=== PATIENT | female | born 1965 | race Caucasian/White ===

== ENCOUNTER → 2018-07-13 07:45 | Outpatient (CLI) | payer OTHER, SELFPAY ==
--- NOTE | 2018-07-13 07:47 | BI_ITS ---
MAMMOGRAPHY - BILATERAL SCREENING 3-D CARYL SYNTHESIS REASON FOR EXAM: Female, 53 years old. Bilateral Screening 3-D tomosynthesis PERTINENT HISTORY: Asymptomatic. Right stereotactic biopsy 2009. Family breast carcinoma, maternal aunt age 58, 2 maternal cousins, age 20 and 30. VAGIFEM CR X 3 YRS TECHNIQUE: 2-D mammograms and 3-D Caryl synthesis of the breast (s) were performed. CAD was performed. COMPARISON: 07/09/2017, 07/08/2016. FINDINGS: The breast composition is composed of scattered fibroglandular density. Scattered benign appearing calcifications are again seen. No dense spiculated dominant masses or suspicious microcalcification cluster are identified. No architectural distortion, asymmetric density, adenopathy, skin thickening or nipple retraction identified. No change left breast central tiny biopsy clip. There has been no significant change since the most recent prior study. BI/SCREENING MAMM (CAD), BILAT IMPRESSION: No mammographic sign of malignancy. Routine yearly mammograms recommended. ASSESSMENT CATEGORY: BIRADS Category 2: Benign. A letter regarding these results will be sent to the patient by the facility within 30 days. FOLLOW UP RECOMMENDATION: Yearly follow up mammogram recommended. (A) Negative mammographic results should not deter biopsy as a palpable lesion if present should be followed on clinical grounds and biopsy performed if clinically persistent for 3 months or increasing size. Approximately 10% of breast cancers are not detected by mammography. A normal mammogram should not delay biopsy of a clinically suspicious abnormality. Dense breast tissue mainstream neoplasm. Electronically Signed: Irwin Rehman, at 13:20 EDT Tel , Service support ,
== END ==
PROVIDERS: Family Provider Nurse Practitioner Adult Health; PCP Nurse Practitioner Adult Health; Referring Provider Nurse Practitioner Women's Health; Visit Provider Nurse Practitioner Women's Health
DX: Z12.31 Encounter for screening mammogram for malignant neoplasm of breast (principal)
CPT/HCPCS: 77063; 77067

== ENCOUNTER → 2019-10-07 08:28 | Outpatient (CLI) | payer OTHER, SELFPAY ==
--- NOTE | 2019-10-07 08:28 | BI_ITS ---
MAMMOGRAPHY - BILATERAL SCREENING 3-D TOMOSYNTHESIS REASON FOR EXAM: Female, 54 years old. BILAT SCREENING - FAM HX OF MAT AUNT @ AGE 58 and amp;amp; 2 MAT COUSINS @ AGE 20''S-30''S - CURR VAG HRT X 4 YRS PERTINENT HISTORY: No significant family history. TECHNIQUE: 2-D mammograms and 3-D Tomosynthesis of the breast (s) were performed. CAD was performed. COMPARISON: July 13, 2018. July 09, 2017. FINDINGS: The breast composition is composed of scattered fibroglandular density. Scattered benign calcifications are seen. No dense spiculated masses or suspicious microcalcifications are identified. No architectural distortion is identified. There is no skin thickening or retraction. There has been no significant change since the prior study. BI/SCREEN MAMM (CAD) W/CARYL BILAT IMPRESSION: No mammographic signs of malignancy. Routine yearly mammograms recommended. ASSESSMENT CATEGORY: BIRADS Category 2: Benign. A letter regarding these results will be sent to the patient by the facility within 30 days. FOLLOW UP RECOMMENDATION: Yearly follow up mammogram recommended. (A) Approximately 10% of breast cancers are not detected by mammography. A normal mammogram should not delay biopsy of a clinically suspicious abnormality. Electronically Signed: Tre Lim MD at 10:01 EST , Service support ,
== END ==
PROVIDERS: Family Provider Nurse Practitioner Adult Health; PCP Nurse Practitioner Adult Health; Referring Provider Nurse Practitioner Women's Health; Visit Provider Nurse Practitioner Women's Health
DX: Z12.31 Encounter for screening mammogram for malignant neoplasm of breast (principal)
CPT/HCPCS: 77063; 77067

== ENCOUNTER → 2020-10-09 07:52 | Outpatient (CLI) | payer OTHER, SELFPAY ==
[2019-10-12 08:06] VITALS: BMI 23.8
--- NOTE | 2020-10-09 07:54 | BI_ITS ---
MAMMOGRAPHY - BILATERAL SCREENING REASON FOR EXAM: Female, 55 years old. Routine annual screening examination. PERTINENT HISTORY: Aunt with breast cancer. Remote right stereotactic breast biopsy. TECHNIQUE: Digital bilateral breast caryl (3D mammographic acquisition) in the CC and MLO projections. 2-D mediolateral oblique (MLO) and craniocaudad (CC) views of both breasts were obtained. CAD: Full Field Digital Mammography with Computer Added Detection was performed. COMPARISON: Comparison is made with prior study dated 10/07/2019 and 07/13/2018. FINDINGS: Breast Composition: There are scattered areas of fibroglandular density. There are no dominant masses or suspicious calcifications. A tissue clip marker is once again seen in the upper central portion of the right breast. Stable calcified right retroareolar nodule. No other significant abnormalities are identified. There has been no significant change since the prior study. BI/SCREEN MAMM (CAD) W/CARYL BILAT IMPRESSION: Stable bilateral screening mammogram. Yearly follow-up mammogram recommended. (A) ASSESSMENT CATEGORY: BIRADS Category 2: Benign. A letter regarding these results will be sent to the patient by the facility within 30 days. Approximately 10% of breast cancers are not detected by mammography. A normal mammogram should not delay biopsy of a clinically suspicious abnormality. [id number] Electronically Signed: Sheldon Stapleton, at 12:42 EST , Service support ,
== END ==
PROVIDERS: PCP Nurse Practitioner Adult Health; Referring Provider Nurse Practitioner Women's Health; Visit Provider Nurse Practitioner Women's Health
DX: Z12.31 Encounter for screening mammogram for malignant neoplasm of breast (principal); Z80.3 Family history of malignant neoplasm of breast
CPT/HCPCS: 77063; 77067

== ENCOUNTER → 2020-10-23 13:18 | Outpatient (CLI) | payer OTHER, SELFPAY ==
[2019-10-12 08:06] VITALS: BMI 23.8
[2020-10-27 20:11] LABS: HPV APTIMA, High Risk Negative (Negative)
== END ==
PROVIDERS: PCP Nurse Practitioner Adult Health; Visit Provider Nurse Practitioner Women's Health
DX: Z12.4 Encounter for screening for malignant neoplasm of cervix (principal)
CPT/HCPCS: 87624; 88175; G0145

== ENCOUNTER 2021-12-18 08:15 | Outpatient (CLI) | payer OTHER, SELFPAY ==
--- NOTE | 2021-12-18 08:26 | BD_ITS ---
STUDY: DUAL ENERGY X-RAY ABSORPTIOMETRY / DXA REASON FOR EXAM: Female, 56 years old. Post menopausal TECHNIQUE: Bone Mineral Density (BMD) measurements of lumbar spine and bilateral hips were obtained. COMPARISON: None. FINDINGS: Lumbar Spine (L1-L4): g/cm2 (0.923) / T-score (-1.1) / Z-score (0.2) Findings are suggestive of osteopenia with a low fracture risk. Left Femur Total: g/cm2 (0.840) / T-score (-0.8) / Z-score (0.0) Left Femoral Neck: g/cm2 (0.744) / T-score (-0.9) / Z-score (0.3) Right Femur Total: g/cm2 (0.871) / T-score (-0.6) / Z-score (0.3) Right Femoral Neck: g/cm2 (0.710) / T-score (-1.3) / Z-score (0.0) BD/Dexa Bone Density Study IMPRESSION: The patient is considered osteopenic as outlined below according to World [employer] Organization (WHO) criteria with a low fracture risk. Reference Information: The T-score is the number of standard deviations above or below the standard which is normal for young adults at their peak bone mineral density. The World Health Organization (WHO) interprets the T-scores as follows: Above -1 Normal bone density Between -1 and -2.5 Osteopenia Equal to / or below -2.5 Osteoporosis As a practical clinical guideline, osteopenia may be graded as follows: Mild -1 through -1.5 Moderate -1.6 through -2.0 Severe -2.1 through -2.4 The Z-score is the number of standard deviations above or below age-matched controls. A Z-score of less than -1.5 would be considered abnormal. References: 1. NIH Osteoporosis and Related Bone Diseases www osteo.org 2. International Society for Clinical Densitometry www iscd.org 3. National Osteoporosis Foundation www nof.org Electronically Signed: Shelodn Stapleton MD at 8:46 EDT ,
== END 2021-12-18 23:59 | disposition home or self-care (01) ==
LOC: OPBD 08:16
PROVIDERS: PCP Internal Medicine; Referring Provider Nurse Practitioner Women's Health; Visit Provider Nurse Practitioner Women's Health
DX: Z78.0 Asymptomatic menopausal state (principal)
CPT/HCPCS: 77080

== ENCOUNTER → 2022-10-14 | Outpatient (CLI) | payer MEDICARE, SELFPAY ==
--- NOTE | 2022-10-14 07:13 | BI_ITS ---
MAMMOGRAPHY - BILATERAL SCREENING REASON FOR EXAM: Female, 57 years old. Routine annual screening examination. PERTINENT HISTORY: Aunt with breast cancer. Prior right breast biopsy. TECHNIQUE: Digital bilateral breast caryl (3D mammographic acquisition) in the CC and MLO projections. 2-D mediolateral oblique (MLO) and craniocaudad (CC) views of both breasts were obtained. CAD: Full Field Digital Mammography with Computer Added Detection was performed. COMPARISON: Comparison is made with prior study dated 10/10/2021 and 10/09/2020. FINDINGS: Breast Composition: There are scattered areas of fibroglandular density. There are no dominant masses or suspicious calcifications. A tissue clip marker is seen in the central depth of the right breast. This is unchanged. No other significant abnormalities are identified. There has been no significant change since the prior study. BI/SCRN MAMM (CAD)W/CARYL BILAT IMPRESSION: Stable bilateral screening mammogram. Yearly follow-up mammogram recommended. (A) ASSESSMENT CATEGORY: BIRADS Category 2: Benign. A letter regarding these results will be sent to the patient by the facility within 30 days. Approximately 10% of breast cancers are not detected by mammography. A normal mammogram should not delay biopsy of a clinically suspicious abnormality. [id number] Electronically Signed: Sheldon Stapleton MD at 8:54 EST ,
== END | disposition home or self-care (01) ==
PROVIDERS: PCP Internal Medicine; Visit Provider Nurse Practitioner Women's Health
DX: Z12.31 Encounter for screening mammogram for malignant neoplasm of breast (principal)
CPT/HCPCS: 77063; 77067

== ENCOUNTER → 2023-10-16 | Outpatient (CLI) | payer MEDICARE, SELFPAY ==
--- NOTE | 2023-10-16 07:02 | BI_ITS ---
MAMMOGRAPHY - BILATERAL SCREENING REASON FOR EXAM: Female, 58 years old. Routine annual screening examination. PERTINENT HISTORY: Aunt with breast cancer. History of prior right stereotactic breast biopsy. TECHNIQUE: Digital bilateral breast caryl (3D mammographic acquisition) in the CC and MLO projections. 2-D mediolateral oblique (MLO) and craniocaudad (CC) views of both breasts were obtained. CAD: Full Field Digital Mammography with Computer Added Detection was performed. COMPARISON: Comparison is made with prior study of October 14, 2022 and October 10, 2021. FINDINGS: Breast Composition: There are scattered areas of fibroglandular density. There are no dominant masses or suspicious calcifications. A tissue clip marker is again seen in the central depth of the right breast. No other significant abnormalities are identified. There has been no significant change since the prior study. BI/SCRN MAMM (CAD)W/CARYL BILAT IMPRESSION: Stable bilateral screening mammogram. Yearly follow-up mammogram recommended. (A) ASSESSMENT CATEGORY: BIRADS Category 2: Benign. A letter regarding these results will be sent to the patient by the facility within 30 days. Approximately 10% of breast cancers are not detected by mammography. A normal mammogram should not delay biopsy of a clinically suspicious abnormality. [id number] Electronically Signed: Sheldon Stapleton MD at 8:21 EST ,
--- OUTSIDE RECORDS SUMMARY | 2023-10-16 07:05 | XMS RPT_ITS | CCD ---
Author Name Unknown Address [address] [place] [address] Organization [facility] Care Team Providers Care Tile Inspector Name Role Phone Margy DENTAL DETAIL REPRESENTATIVE, Erica Lawson Unavailable Aleksandr LONGORIA, Mariam Primary Care Provider Mariam Brandon MD Primary Care Provider [phone] KYLE SÁNCHEZ Attending Unavailable ALEKSANDR, MARIAM Primary Care Unavailable KYLE SÁNCHEZ Admitting Unavailable KYLE SÁNCHEZ Attending Unavailable ALEKSANDR, MARIAM Primary Care Unavailable KYLE SÁNCHEZ Admitting Unavailable Mariam Brandon MD Primary Care Provider Mariam Brandon MD Primary Care Provider [phone] OLDER, KELSEY Referring Unavailable GANTA, MARIAM Primary Care Unavailable BRIGITTE ABDI Attending Unavailable JOSE MANUEL WATERS Referring Unavailable GANTA, MARIAM Primary Care Unavailable JOSE MANUEL WATERS Attending Unavailable GANTA, MARIAM Primary Care Unavailable GANTA MARIAM Referring Unavailable GANTA, MARIAM Primary Care Unavailable AZAR SYED Attending Unavailable GANTA, MARIAM Primary Care Unavailable Medications Current Medications Medication Drug Class(es) Dates Sig (Normalized) Sig (Original) polyethylene glycol 3350 883117 mg / potassium chloride 2980 mg / sodium bicarbonate 6720 mg / sodium chloride 5840 mg / sodium sulfate 39802 mg powder for oral solution (1 source) Osmotic Laxative Start: 05-26-2023 End: 05-26-2023 peg 3350-electrolytes (COLYTE) 240-22.72-6.72 -5.84 gram solution Indications: Special screening for malignant neoplasms, colon Take 4,000 mL by mouth one time only for 1 dose. 4000 mL 0 05/26/2023 05/26/2023 Active Completed/Discontinued Medications Medication Drug Class(es) Dates Sig (Normalized) Sig (Original) biotin 5 mg oral tablet (20 sources) take 1 tablet by tammi th once daily biotin 5 mg tab Take 5 mg by mouth once daily. 0 Active Problems Active Problems Problem Classification Problem Date Documented Date Episodic/Chronic Anxiety disorders (20 sources) Anxiety; Translations: [Anxiety disorder, unspecified] Onset: 01-14-2014 01-14-2014 Chronic Diabetes mellitus without complication (2 sources) Hyperglycemia; Translations: [Hyperglycemia, unspecified] Episodic Disorders of lipid metabolism (2 sources) Mixed hyperlipidemia; Translations: [Mixed hyperlipidemia] Chronic Nutritional deficiencies (1 source) Vitamin D deficiency; Translations: [Vitamin D deficiency, unspecified] Chronic Other acquired deformities (20 sources) Acquired kyphosis; Translations: [Kyphosis (acquired)] Onset: 03-28-2004 03-28-2004 Chronic Other circulatory disease (1 source) Labile hypertension due to being in a clinical environment; Translations: [Elevated blood-pressure reading, without diagnosis of hypertension] 05-26-2023 Episodic Other screening for suspected conditions (not mental disorders or infectious disease) (10 sources) Patient encounter status; Translations: [Encounter for screening for diabetes mellitus] Onset: 07-23-2023 Episodic Spondylosis; intervertebral disc disorders; other back problems (20 sources) Cervical spondylosis; Translations: [Spondylosis without myelopathy or radiculopathy, cervical region] Onset: 12-20-2011 12-20-2011 Chronic Thyroid disorders (20 sources) Acquired hypothyroidism; Translations: [Hypothyroidism, unspecified] Onset: 01-27-2012 Chronic Unclassified (1 source) Gynecologic examination ; Translations: [Encounter for gynecological examination (general) (routine) without abnormal findings] Onset: 07-10-2017 07-10-2017 Unclassified (1 source) Screening mammography ; Translations: [Encounter for screening mammogram for malignant neoplasm of breast] Onset: 05-05-2017 05-05-2017 Past or Other Problems Problem Classification Problem Date Documented Da te Episodic/Chronic Other aftercare (1 source) 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; Translations: [Medication management] Onset: 09-04-2022 Episodic Other connective tissue disease (20 sources) Impingement syndrome of shoulder region; Translations: [Impingement syndrome of unspecified shoulder] Onset: 09-14-2015 09-14-2015 Episodic Other female genital disorders (20 sources) Stenosis of cervix; Translations: [Stricture and stenosis of cervix uteri] Onset: 12-20-2011 12-20-2011 Episodic Other fractures (20 sources) Compression fracture of thoracic spine; Translations: [Wedge compression fracture of unspecified thoracic vertebra, initial encounter for closed fracture] Onset: 04-11-2014 09-14-2015 Episodic Other non-traumatic joint disorders (20 sources) Pain in lower limb; Translations: [Pain in unspecified knee] Onset: 02-14-2009 09-28-2015 Episodic Other non-traumatic joint disorders (20 sources) Swelling of knee joint; Translations: [Effusion, right knee] Onset: 04-19-2014 09-28-2015 Episodic Other non-traumatic joint disorders (20 sources) Pain in right knee; Translations: [Pain in joint, lower leg] Onset: 04-19-2014 04-19-2014 Episodic Spondylosis; intervertebral disc disorders; other back problems (20 sources) Pain in thoracic spine; Translations: [Pain in thoracic spine] Onset: 03-28-2004 09-01-2018 Episodic Results Test Name Value Interpretation Reference Range Facil ity Vital Signs Date Time Vital Sign Value Performing Clinician Facility 07-23-2023 10:57-0400 Heart rate 53 /min Brigitte Abdi MD Work Phone: [facility] 07-23-2023 10:57-0400 Respiratory rate 16 /min Brigitte Abdi MD Work Phone: [facility] 07-23-2023 10:57-0400 SaO2% (BldA) [Mass fraction] 100 % Brigitte Abdi MD Work Phone: [facility] 07-23-2023 10:47-0400 Diastolic blood pressure 81 mm[Hg] Brigitte Abdi MD Work Phone: [facility] 07-23-2023 10:47-0400 Systolic blood pressure 153 mm[Hg] Brigitte Abdi MD Work Phone: [facility] 07-23-2023 09:19-0400 Body temperature 97.2 [degF] Brigitte Abdi MD Work Phone: [facility] 05-26-2023 07:46-0400 Body height 152.4 cm Jose Manuel Denbow PA-C Work Phone: [facility] 05-26-2023 07:46-0400 Body temperature 98.29 [degF] Jose Manuel Denbow PA-C Work Phone: [facility] 05-26-2023 07:46-0400 Body weight 52.62 kg Jose Manuel Denbow PA-C Work Phone: [facility] 05-26-2023 07:46-0400 Diastolic blood pressure 70 mm[Hg] Jose Manuel Denbow PA-C Work Phone: [facility] 05-26-2023 07:46-0400 Heart rate 82 /min Jose Manuel Denbow PA-C Work Phone: [facility] 05-26-2023 07:46-0400 Respiratory rate 12 /min Jose Manuel Denbow PA-C Work Phone: [facility] 05-26-2023 07:46-0400 SaO2% (BldA) [Mass fraction] 100 % Jose Manuel Denbow PA-C Work Phone: [facility] 05-26-2023 07:46-0400 Systolic blood pressure 138 mm[Hg] Jose Manuel Denbow PA-C Work Phone: [facility] 01-07-2023 07:44-0400 Body height 152.4 cm Azar Quiñonezle DIRECTOR CORPORATE SECURITY.LANDSCAPE ARCHITECT Work Phone: [facility] 01-07-2023 07:44-0400 Body weight 56.06 kg Azar Syed DIRECTOR CORPORATE SECURITY.LANDSCAPE ARCHITECT Work Phone: [facility] 01-07-2023 07:44-0400 Heart rate 69 /min Azar Quiñonezle DIRECTOR CORPORATE SECURITY.LANDSCAPE ARCHITECT Work Phone: [facility] 01-07-2023 07:44-0400 SaO2% (BldA) [Mass fraction] 100 % Azar Syed DIRECTOR CORPORATE SECURITY.LANDSCAPE ARCHITECT Work Phone: [facility] 05-24-2022 07:58-0400 Body height 152.4 cm Mariam Brandon MD Work Phone: [facility] 05-24-2022 07:58-0400 Body temperature 99.39 [degF] Mariam Brandon MD Work Phone: [facility] 05-24-2022 07:58-0400 Body weight 52.62 kg Mariam Brandon MD Work Phone: [facility] 05-24-2022 07:58-0400 Diastolic blood pressure 62 mm[Hg] Mariam Brandon MD Work Phone: [facility] 05-24-2022 07:58-0400 Heart rate 82 /min Mariam Brandon MD Work Phone: [facility] 05-24-2022 07:58-0400 Respiratory rate 12 /min Mariam Brandon MD Work Phone: [facility] 05-24-2022 07:58-0400 SaO2% (BldA) [Mass fraction] 99 % Mariam Brandon MD Work Phone: [facility] 05-24-2022 07:58-0400 Systolic blood pressure 120 mm[Hg] Mariam Brandon MD Work Phone: [facility] 04-29-2022 07:50-0400 Body height 152.4 cm Azar Syed DIRECTOR CORPORATE SECURITY.LANDSCAPE ARCHITECT Work Phone: [facility] 04-29-2022 07:50-0400 Body weight 56.11 kg Azar Syed DIRECTOR CORPORATE SECURITY.LANDSCAPE ARCHITECT Work Phone: [facility] 04-29-2022 07:50-0400 Heart rate 79 /min Azar Syed DIRECTOR CORPORATE SECURITY.LANDSCAPE ARCHITECT Work Phone: [facility] 04-29-2022 07:50-0400 SaO2% (BldA) [Mass fraction] 100 % Azar Syed DIRECTOR CORPORATE SECURITY.LANDSCAPE ARCHITECT Work Phone: [facility] 02-04-2022 08:48-0400 Body weight 57.52 kg Azar Syed DIRECTOR CORPORATE SECURITY.LANDSCAPE ARCHITECT Work Phone: [facility] 02-04-2022 08:48-0400 Diastolic blood pressure 82 mm[Hg] Azar Syed APRN.LANDSCAPE ARCHITECT Work Phone: [facility] 02-04-2022 08:48-0400 Heart rate 91 /min Azar Syed APRN.LANDSCAPE ARCHITECT Work Phone: [facility] 02-04-2022 08:48-0400 SaO2% (BldA) [Mass fraction] 100 % Azar Syed DIRECTOR CORPORATE SECURITY.LANDSCAPE ARCHITECT Work Phone: [facility] 02-04-2022 08:48-0400 Systolic blood pressure 164 mm[Hg] Azar Syed DIRECTOR CORPORATE SECURITY.LANDSCAPE ARCHITECT Work Phone: [facility] 07-10-2017 08:01-0400 BMI (Body Mass Index) 23.36 kg/m2 Erica Ji NP [facility] 07-10-2017 08:01-0400 Body Temperature 98.2 [degF] Erica Ji NP [facility] 07-10-2017 08:01-0400 BP Diastolic 85 mm[Hg] Erica Ji NP [facility] 07-10-2017 08:01-0400 BP Systolic 130 mm[Hg] Erica Ji NP [facility] 07-10-2017 08:01-0400 Height 152.4 cm Erica Ji NP [facility] 07-10-2017 08:01-0400 Pulse (Heart Rate) 90 /min Erica Ji NP [facility] 07-10-2017 08:01-0400 Respiratory Rate 16 /min Erica Ji NP [facility] 07-10-2017 08:01-0400 Weight 54.25 kg Erica Ji NP [facility] Encounters Encounter Date Encounter Type Care Provider Facility Start: 07-23-2023 End: 07-23-2023 ambulatory BRIGITTE ABDI Facility:[facility] Start: 07-23-2023 End: 07-23-2023 Subsequent hospital visit by physician Brigitte Abdi MD Work Phone: Ambulatory Surgery Procedures Date Procedure Procedure Detail Performing Clinician Start: 07-23-2023 Colonoscopy flx dx w /collj spec when pfrmd Jose Manuel Waters PA-C Work Phone: Start: 07-23-2023 Colonoscopy Brigitte Abdi MD Work Phone: Start: 05-20-2023 Lipid 1996 panel - S efra or Plasma Brigitte Abdi MD Work Phone: Start: 10-14-2022 Mammography Mariam baca MD Work Phone: Start: 05-24-2022 Adult depression scr eening assessment Mariam Brandon MD Work Phone: Start: 10-10-2021 Mammography Mariam baca MD Work Phone: Start: 05-24-2019 Adult depression scr eening assessment Mariam Brandon MD Work Phone: Start: 05-05-2017 End: 07-16-2017 Mammogram, screening Erica Ji NP Work Phone: Start: 07-09-2013 Colonoscopy Mariam baca MD Work Phone: Plan of Treatment Date Care Activity Detail Author Start: 07-23-2033 Colonoscopy Colonoscopy [facility] Start: 07-23-2033 Colorectal Cancer Screening Colorectal Cancer Screening [facility] Start: 05-20-2028 Lipid 1996 panel - S efra or Plasma Lipid Screening [facility] Start: 05-20-2028 LIPID SCREEN LIPID SCREEN [facility] Start: 05-22-2027 PAP TESTING PAP TESTING [facility] Start: 05-21-2027 Urine microalbumin profile [facility] Start: 05-16-2027 LIPID SCREEN LIPID SCREEN [facility] Start: 12-19-2026 HPV TESTING HPV TESTING [facility] Start: 05-20-2026 DIABETES SCREEN DIABETES SCREEN [facility] Start: 05-20-2026 Diabetes Screening Diabetes Screenin g [facility] Start: 05-14-2026 LIPID SCREEN LIPID SCREEN [facility] Start: 05-16-2025 DIABETES SCREEN DIABETES SCREEN [facility] Start: 05-26-2024 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 ANNUAL PCP TEAM CHRONIC DISEASE VISIT [facility] Start: 05-26-2024 COVID-19 VACCINE (3 - Pfizer series) COVID-19 VACCINE (3 - Pfizer series) [facility] Immunizations Immunization Date Immunization Notes Care Provider Deric larkin 07-26-2022 influenza, seasonal, injectable Azar Syed SINDHU Work Phone: [facility] 07-26-2022 influenza virus vaccine, unspecified formulation Brigitte Abdi MD Work Phone: [facility] 01-22-2021 COVID-19 vaccine, ag e 12+ yr (PFIZER-BIONTECH - PURPLE TOP) Mariam Brandon MD Work Phone: [facility] Work Phone: 01-01-2021 COVID-19 vaccine, ag e 12+ yr (PFIZER-BIONTECH - PURPLE TOP) Mariam Brandon MD Work Phone: [facility] 05-21-2017 tetanus toxoid, redu karime diphtheria toxoid, and acellular pertussis vaccine, adsorbed Mariam Brandon MD Work Phone: [facility] 08-09-2016 influenza, injectabl e, quadrivalent, contains preservative Mariam Brandon MD Work Phone: [facility] Work Phone: 07-24-2006 tetanus and diphther ia toxoids, adsorbed, preservative free, for adult use (2 Lf of tetanus toxoid and 2 Lf of diphtheria toxoid) Mariam Brandon MD Work Phone: [facility] Payers Date Payer Category Payer Unknown [id number] 2007 Private Health Insurance [facility] CHOICE PLUS [id number] 2007-Present [phone] [address] [place] [address] [place] [address] [id number] 2007 Private Health Insurance [facility] CHOICE PLUS [id number] 2007-Present [phone] [address] [place] [id number] [facility] [id number] 2007 Unknown [id number] 1986 Unknown [id number] Social History Date Type Detail Facility Start: 06-24-2011 Tobacco smoking stat [facility] Never smoked tobacco [facility] Start: 11-29-2021 End: 07-23-2023 Alcohol intake Current drinker of alcohol (finding) [facility] Start: 1965 Sex Assigned At Not on file [facility] Start: 01-04-2022 End: 06-27-2022 Exposure to SARS-CoV-2 (event) Not sure [facility] Start: 06-24-2011 Tobacco use and exposure Smokeless tobacco non-user [facility] Start: 10-21-2022 End: 01-07-2023 History of Social function [facility] Work Phone: Start: 10-21-2022 End: 01-07-2023 Tobacco use panel [facility] Work Phone: National Score (1-100), lower number is lower risk 51 [facility] Work Phone: Medical Equipment Procedure Code Equipment Code Equipment Origin al Text Equipment Identifier Dates Nau-Xl-[id number]-Kind Implant - [id number] Start: 10-09-2011 Clinical Notes 01-30-2016 to 07-23-2023 Odilia Reynolds RN - 07/23/2023 10:27 AM Brigitte Leon MD - 07/23/2023 10:00 AM Brigitte Leon MD - 07/23/2023 10:00 AM EDTPatient Instructions Note Date & Type Note Facility 07-23-2023 Nurse Note Arrived in phase II via cart. Left lateral position. Sedated, but responds to verbal stimuli. Color normal; skin warm and dry. Respirations wnl and unlabored. Abdomen soft and with + bowel sounds in quads X 4. Patient resting comfortably. Odilia Austin RN documented in this encounter [facility] 07-23-2023 History and physical note UPDATED PROCEDURAL SEDATION HISTORY AND PHYSICAL EXAMINATION SERVICE DATE: 07/23/2023 SERVICE TIME: 9:14 PHYSICAL EXAM MUST BE COMPLETED ON ADMISSION PROCEDURE: colonoscopy, possible biopsies Procedure Indications: screening for colon cancer The History and Physical (completed in the past 30 days) has been reviewed and the patient has been examined. The contents accurately reflect the patient's condition with the following additions or revisions since the H&P was completed. ASA Class: ASA Class:: Patient with mild systemic disease Examination indicates no changes. AIRWAY: Airway Visualization of Uvula: Yes Mouth opening greater than 2 fingerbreadths: Yes Neck Full Range of Motion: Yes LUNGS: Lungs clear to auscultation CARDIAC: Regular rhythm,Regular rate Provisional Diagnosis/Treatment Plan: colonoscopy, possible biopsies SEDATION GOAL: Moderate This H&P can be found in the Electronic Medical Record . SIGNATURE: Brigitte Abdi MD PATIENT NAME: Katherine Flores DATE: July 23, 2023 TIME: 9:19 AM Source Note - Brigitte Abdi MD - 07/23/2023 10:00 AM EDT HISTORY AND PHYSICAL Katherine Flores 1965 REFERRING PHYSICIAN: Jose Manuel Waters PA-C CHIEF COMPLAINT: No chief complaint on file. HPI: The patient is a 58 year old female presents for screening for colon cancer via colonoscopy The patient denies blood in stools, denies abdominal pain, and denies changes in bowel habits. The patient notes no colon cancer in immediate family. The patient has had previous colonoscopy in 2012 PAST MEDICAL HISTORY Diagnosis Date Abnormal mammogram, unspecified 06/21/2009 Biceps tendinitis on right 01/30/2016 Cervical stenosis of spine Chronic right shoulder pain 01/30/2016 Encounter for insertion or removal of intrauterine contraceptive device 07/15/2008 Mirena Fibrocystic disease of breast 01/15/2010 Hypothyroid 08/2009 Osteoarthritis knees- follows with Ortho Other acquired deformity of toe 08/20/2010 PCB (post coital bleeding) PMH - PAST MEDICAL HISTORY OF broken back PMH - PAST MEDICAL HISTORY OF bartholin cyst PAST SURGICAL HISTORY Procedure Laterality Date BX BREAST PERC VACUUM/ROTN 06/23/09 right CHOLECYSTECTOMY COLONOSCOPY FLX DX W/COLLJ SPEC WHEN PFRMD 07/09/2013 Colonoscopy DILATION & CURETTAGE DX&/THER NONOBSTETRIC 2016 Dilation & curettage HYSTEROSCOPY 2016 for removal of cervical/uterine polyp. 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 Except take 2 tablets on Friday latanoprost (XALATAN) 0.005 % ophthalmic solution 1 Drop daily at bedtime. cholecalciferol (VITAMIN D3) 1,000 unit tab tablet Take 1,000 Units by mouth once daily. cyclobenzaprine (FLEXERIL) 10 mg tablet Take 1 tablet by mouth three times daily as needed for muscle spasm. clonazePAM (KLONOPIN) 0.5 mg tablet Take 1 tablet by mouth once daily as needed for anxiety for up to 30 days. traMADol (ULTRAM) 50 mg tablet Take 1 tablet by mouth every 6 hours as needed for pain. conjugated estrogens (PREMARIN) vaginal cream Use a pea sized amount to the vaginal area 3 times a week biotin 5 mg tab Take 5 mg by mouth once daily. No current facility-administered medications for this encounter. ALLERGIES: No Known Allergies PERSONAL HISTORY: Social History Tobacco Use Smoking status: Never Smokeless tobacco: Never Substance Use Topics Alcohol use: Yes Comment: very rare Drug use: No FAMILY HISTORY Problem Relation Age of Onset Diabetes Mother Hypertension Mother Lipids Mother other (parkinsons) Mother Prostate Cancer Father Diabetes Father prediabetic Hypertension Father Kidney Disease Father FSGS COPD Father other (PAD) Father Diabetes Paternal Grandmother Breast Cancer Other maternal cousin Diabetes Brother Hypertension Brother other (kidney disease) Brother kidney and pancreas transplant 04/12 REVIEW OF SYSTEMS: Denies fevers Denies chest pain Denies shortness of breath Physical examination: Vital signs in chart, reviewed and noted by me General - WD/WN in no apparent distress, alert and oriented Head - Normocephalic. EOM intact with sclera clear. Mouth with mucus membranes moist. Neck - supple with no jugular venous distention noted. Trachea is midline. Lungs - clear to auscultation. Normal breath sounds. No rales/rhonchi/wheezing noted. Heart - normal heart sounds. No rubs/clicks/murmurs noted. Regular rate. Abdomen - soft and benign. Extremities - no pitting edema noted. Skin - Normal skin integrity. Neurological - non focal Psych - calm and appropriate Impression: screening for colon cancer Discussion/Plan/Recommendations: I have discussed the above with the patient. I have offered colonoscopy, possible biopsies I have explained the procedure to the patient. I have counseled the patient as to the risks of the procedure, including but not limited to: infection, bleeding, injury to any intrabdominal organs such as liver/spleen, perforation of the GI tract, inability to complete the procedure, complications of anesthesia, etc. - the patient understands. The patient wishes to proceed. I have answered all questions to the patient s satisfaction and the patient has no further questions. . Brigitte Abdi MD HISTORY AND PHYSICAL Katherine Flores 1965 REFERRING PHYSICIAN: Jose Manuel Waters PA-C CHIEF COMPLAINT: No chief complaint on file. HPI: The patient is a 58 year old female presents for screening for colon cancer via colonoscopy The patient denies blood in stools, denies abdominal pain, and denies changes in bowel habits. The patient notes no colon cancer in immediate family. The patient has had previous colonoscopy in 2012 PAST MEDICAL HISTORY Diagnosis Date Abnormal mammogram, unspecified 06/21/2009 Biceps tendinitis on right 01/30/2016 Cervical stenosis of spine Chronic right shoulder pain 01/30/2016 Encounter for insertion or removal of intrauterine contraceptive device 07/15/2008 Mirena Fibrocystic disease of breast 01/15/2010 Hypothyroid 08/2009 Osteoarthritis knees- follows with Ortho Other acquired deformity of toe 08/20/2010 PCB (post coital bleeding) PMH - PAST MEDICAL HISTORY OF broken back PMH - PAST MEDICAL HISTORY OF bartholin cyst PAST SURGICAL HISTORY Procedure Laterality Date BX BREAST PERC VACUUM/ROTN 06/23/09 right CHOLECYSTECTOMY COLONOSCOPY FLX DX W/COLLJ SPEC WHEN PFRMD 07/09/2013 Colonoscopy DILATION & CURETTAGE DX&/THER NONOBSTETRIC 2016 Dilation & curettage HYSTEROSCOPY 2016 for removal of cervical/uterine polyp. 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 Except take 2 tablets on Friday latanoprost (XALATAN) 0.005 % ophthalmic solution 1 Drop daily at bedtime. cholecalciferol (VITAMIN D3) 1,000 unit tab tablet Take 1,000 Units by mouth once daily. cyclobenzaprine (FLEXERIL) 10 mg tablet Take 1 tablet by mouth three times daily as needed for muscle spasm. clonazePAM (KLONOPIN) 0.5 mg tablet Take 1 tablet by mouth once daily as needed for anxiety for up to 30 days. traMADol (ULTRAM) 50 mg tablet Take 1 tablet by mouth every 6 hours as needed for pain. conjugated estrogens (PREMARIN) vaginal cream Use a pea sized amount to the vaginal area 3 times a week biotin 5 mg tab Take 5 mg by mouth once daily. No current facility-administered medications for this encounter. ALLERGIES: No Known Allergies PERSONAL HISTORY: Social History Tobacco Use Smoking status: Never Smokeless tobacco: Never Substance Use Topics Alcohol use: Yes Comment: very rare Drug use: No FAMILY HISTORY Problem Relation Age of Onset Diabetes Mother Hypertension Mother Lipids Mother other (parkinsons) Mother Prostate Cancer Father Diabetes Father prediabetic Hypertension Father Kidney Disease Father FSGS COPD Father other (PAD) Father Diabetes Paternal Grandmother Breast Cancer Other maternal cousin Diabetes Brother Hypertension Brother other (kidney disease) Brother kidney and pancreas transplant 04/12 REVIEW OF SYSTEMS: Denies fevers Denies chest pain Denies shortness of breath Physical examination: Vital signs in chart, reviewed and noted by me General - WD/WN in no apparent distress, alert and oriented Head - Normocephalic. EOM intact with sclera clear. Mouth with mucus membranes moist. Neck - supple with no jugular venous distention noted. Trachea is midline. Lungs - clear to auscultation. Normal breath sounds. No rales/rhonchi/wheezing noted. Heart - normal heart sounds. No rubs/clicks/murmurs noted. Regular rate. Abdomen - soft and benign. Extremities - no pitting edema noted. Skin - Normal skin integrity. Neurological - non focal Psych - calm and appropriate Impression: screening for colon cancer Discussion/Plan/Recommendations: I have discussed the above with the patient. I have offered colonoscopy, possible biopsies I have explained the procedure to the patient. I have counseled the patient as to the risks of the procedure, including but not limited to: infection, bleeding, injury to any intrabdominal organs such as liver/spleen, perforation of the GI tract, inability to complete the procedure, complications of anesthesia, etc. - the patient understands. The patient wishes to proceed. I have answered all questions to the patient s satisfaction and the patient has no further questions. . Brigitte Abdi MD documented in this encounter [facility] 05-26-2023 Note HNO ID: [id number] Author: Jose Manuel Waters PA-C Service: ? Author Type: Physician Nailing Machine Operator Type: Progress Notes Filed: 05/26/2023 8:50 AM Note Text: CC: Patient presents with: Physical: physical no forms HPI Katherine Flores is a 58 year old female who presents today for annual physical exam. Exercise: Walking is my only exercise because of my back, usually walks daily when weather allows Diet: Eats healthy for the most part- doing well getting in veggies an Caffeine: 3 cans of diet coke/day - her alternative to coffee. 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 She is doing well on her current dose of Synthroid. Had it changed a year ago, and symptoms have improved (was c/o thinning hair, excessive fatigue) Denies fatigue, cold intolerance, constipation, swelling in feet, weight gain, and hair loss. TSH Date Value 05/20/2023 2.300 mIU/L 09/04/2022 3.760 mIU/L 05/14/2021 4.790 uU/mL 05/11/2020 3.150 uU/mL Hx of chronic pain in neck and back, x 2 surgeries and multiple injections-- currently receives them in lumbar and cervical, last received in 02/[address] Magallon for CTS, OA of knees Eczema: Sees Nighat Dumont PA-C, sees 3 times/year Glaucoma: Sees Dr. Márquez at [facility] Has well women's exam through Erica Ji CNP-- last saw in 12/26, last pap was in 12/25 The 10-year ASCVD risk score (Sommer BALDWIN, et al., 2019) is: 3% Values used to calculate the score: Age: 58 years Sex: Female Is Non- : No Diabetic: No Tobacco smoker: No Systolic Blood Pressure: 138 mmHg Is BP treated: No HDL Cholesterol: 72 mg/dL Total Cholesterol: 183 mg/dL REVIEW OF SYSTEMS General: no fevers, no chills, no night sweats, no recurrent infections, no change in appetite, no change in energy, and no significant changes in weight HEENT: no frequent or significant headaches, no changes in hearing, no visual changes, no nose bleeds, no sinus or nasal problems Neck: no lumps, no pain , and no swelling Respiratory: no cough, no wheezing, no shortness of breath, no hemoptysis Cardiovascular: no chest pain, no chest pressure, no palpitations, no swelling, and no decrease in exercise tolerance GI: No nausea, vomiting, or diarrhea, No heartburn or reflux symptoms, and Negative for abdominal discomfort, blood in stools or black stools, change in bowel habit, heart burn, nausea, vomiting : No history of dysuria, frequency or incontinence COGNOS CONSULTANT: Negative for abnormal vaginal bleeding, abnormal vaginal discharge Musculoskeletal: Negative for joint pain or swelling or muscle pain Skin: Negative for lesions, rash, and itching, eczema around eyes well-controlled Psych: Negative for sleep disturbance, mood disorder and recent psychosocial stressors Hematologic/Lymph: Negative for prolonged bleeding, bruising easily or swollen nodes Endocrine: no fatigue, no weight gain, no weight loss, no hair loss, no dry skin, no cold intolerance, no heat intolerance, no neck pain/pressure, no polyuria, no polyphagia, and no polydipsia Neurologic: +Numbness and tingling in legs, arms and hands related to spinal issues-- No headache, weakness, neck stiffness, tremor, vertigo, dizziness, memory loss, syncope. PAST MEDICAL HISTORY Diagnosis Date Abnormal mammogram, unspecified 06/21/2009 Biceps tendinitis on right 01/30/2016 Cervical stenosis of spine Chronic right shoulder pain 01/30/2016 Encounter for insertion or removal of intrauterine contraceptive device 07/15/2008 [facility] Fibrocystic disease of breast 01/15/2010 Hypothyroid 08/2009 Osteoarthritis knees- follows with Ortho Other acquired deformity of toe 08/20/2010 PCB (post coital bleeding) PMH - PAST MEDICAL HISTORY OF broken back PMH - PAST MEDICAL HISTORY OF bartholin cyst PAST SURGICAL HISTORY Procedure Laterality Date BX BREAST PERC VACUUM/ROTN 06/23/09 right CHOLECYSTECTOMY COLONOSCOPY FLX DX W/COLLJ SPEC WHEN PFRMD 07/09/2013 Colonoscopy DILATION AND CURETTAGE DXAND/THER NONOBSTETRIC 2016 Dilation AND curettage HYSTEROSCOPY 2016 for removal of cervical/uterine polyp. IUD INSERTION ([employer] DEPT)_*FL 07/15/2008 Mirena PAST SURGICAL HISTORY OF two back surgeries plus numerous injections PAST SURGICAL HISTORY OF 2004,2005 right foot surgery, bunion removal PAST SURGICAL HISTORY OF 09/14 Right great toe joint replacement PAST SURGICAL HISTORY OF 10-09-11 left bunioncectomy with biopro [facility],DURING BREAST BX 06/23/09 TONSILLECTOMY PRIMARY/SECONDARY AGE 10/> ALLERGIES No Known Allergies MEDICATIONS cyclobenzaprine (FLEXERIL) 10 mg tablet Take 1 tablet by mouth three times daily as needed for muscle spasm. clonazePAM (KLONOPIN) 0.5 mg tablet Take 1 tablet by mouth once daily as needed for anxiety (more content not included)... [facility] 05-26-2023 Instructions Jose Manuel Waters PA-C - 05/26/2023 8:27 AM EDT Health Information For Patients and the Community How to Prepare for Your Colonoscopy Using Golytely, Nulytely, Trilyte or Colyte Preparations IMPORTANT - Please Read These Instructions at Least 2 Weeks Before Your Colonoscopy Box Instructions: ?Your bowel must be empty so that your doctor can clearly view your colon. Follow all of the instructions in this handout EXACTLY as they are written. If you do NOT follow the directions for when to start drinking the bowel preparation (see next page), your colonoscopy WILL be cancelled. ?Do NOT eat any solid food the ENTIRE day before your colonoscopy. ?Buy your bowel preparation at least 5 days before your colonoscopy. ?Do NOT mix the solution until the day before your colonoscopy. Designated Pediatric Cardiologist on the Day of Your Exam A responsible family member or friend MUST come with you to your colonoscopy and REMAIN in the endoscopy area until you are discharged! You are NOT ALLOWED to drive, take a taxi or bus, or leave the Endoscopy Center ALONE. If you do not have a responsible local tanker truck driver (family member or friend) with you to take you home, your exam cannot be done with sedation and will be cancelled. Medications Some of the medicines you take may need to be stopped or adjusted before your colonoscopy. You MUST call the doctor who ordered any of the following medicines at least 2 weeks before your colonoscopy. ?Blood thinners -- such as Coumadin (warfarin), Plavix (clopidogrel), Ticlid (ticlopidine hydrochloride), Agrylin (anagrelide), Xarelto (Rivaroxaban), Pradaxa (Dabigatran), Eliquis (Apixaban), and Effient (Prasugrel). ?Insulin or diabetes pills. Please call the doctor that monitors your glucose levels. Your insulin dosage may need to be adjusted due to the diet restrictions required with this bowel preparation. (Please bring your diabetes medicines with you on the day of your procedure.) If you take aspirin, take it and ALL other medications prescribed by your doctor. On the day of your colonoscopy, take your medications with a sip of water. Revised 11/2016 1 Five (5) Days Before Your Colonoscopy ?Do NOT take medicines that stop diarrhea -- such as Imodium , Kaopectate , or Pepto Bismol . ?Do NOT take fiber supplements -- such as Metamucil , Citrucel , or Perdiem . ?Do NOT take products that contain iron -- such as multi-vitamins -- (the label lists what is in the products). ?Do NOT take vitamin E. Buy the prescription bowel preparation solution at your local pharmacy or drugstore pharmacy. Three (3) Days Before Your Colonoscopy Do NOT eat high-fiber foods -- such as popcorn, beans, seeds (flax, sunflower, quinoa), multigrain bread, nuts, salad/vegetables, or fresh and dried fruit. One (1) Day Before Your Colonoscopy Only drink clear liquids the ENTIRE DAY before your colonoscopy. Do NOT eat any solid foods. Drink at least 8 ounces of clear liquids every hour after waking up. The clear liquids you can drink include: ?water, apple, or white grape juice; broth; coffee or tea (without milk or creamer); clear carbonated beverages such as shakeel jamil or lemon-mescalero apache soda; Gatorade or other sports drinks (not red); Brayan-Aid or other flavored drinks (not red). You may eat plain jello or other gelatins (not red) or popsicles (not red). Do NOT drink alcohol on the day before or the day of the procedure. 2 Revised 11/2016 When to Mix and Drink Your Bowel Prep Follow the instructions on the label. After mixing, place the solution in the refrigerator for a couple of hours before drinking. You may add the flavor packet that came with the bowel preparation. DO NOT add ice, sugar or any flavorings to the solution. Evening Before Your Colonoscopy ?Start drinking the bowel preparation at 6 PM the evening before your colonoscopy. Drink an 8-oz glass of bowel preparation every 10 minutes. You must finish drinking the solution by 9 PM the night before your scheduled procedure. ?You may continue to drink clear liquids only until midnight. Do NOT eat or drink ANYTHING after midnight the night before your procedure or your procedure may be cancelled. This is for your safety and will reduce the risk of having any food or liquid in your stomach move into your lungs (aspiration) during a procedure. If you take aspirin, take it and ALL other prescribed medicines with a sip of water on the day of your colonoscopy. Contact Information: If you are unable to keep your appointment or have any questions about the instructions, please call the facility where the procedure is being performed. Call between the hours of 8:00 AM and 5:00 PM. If you are calling after 5:00 PM, please call Nurse jawbone puller at [phone]. [facility] [address] [place] [id number] Index # [id number] Revised 11/2016 3 Colonoscopy Procedure Overview Please Read Prior to the Procedure What is a Colonoscopy A colonoscopy is an outpatient procedure in which the inside of the large intestine (colon and rectum) is examined. A colonoscopy is commonly used to evaluate gastrointestinal symptoms, such as rectal and intestinal bleeding, abdominal pain, or changes in bowel habits. Colonoscopies are also performed in individuals without symptoms to check for colorectal polyps or cancer. A screening colonoscopy is recommended for anyone 50 years of age and older, and for anyone with parents, siblings or children with a history of colorectal cancer or polyps. What Happens Before a Colonoscopy To have a successful colonoscopy, your bowel must be empty so that your physician can clearly view the colon. To do this, it is very important to read and follow all of the instructions given to you at least 2 weeks BEFORE your exam. If your bowel is not empty, your colonoscopy will not be successful and may have to be repeated. If you feel nauseated or vomit while taking the bowel preparation, wait 30 minutes before drinking more fluid and start with small sips of solution. Some activity (such as walking) or a few soda crackers may help decrease the nausea you are feeling. If the nausea persists, please contact nurse stone layout marker at [phone]. You may experience skin irritation around the anus due to the passage of liquid stools. To prevent and treat skin irritation, you should: ?Apply Vaseline or Desitin ointment to the skin around the anus before drinking the bowel preparation medications. These products can be purchased at any drugstore. ?Wipe the skin after each bowel movement with disposable wet wipes instead of toilet paper. These are found in the toilet paper area of the store. ?Sit in a bathtub filled with warm water for 10 to 15 minutes after you finish passing a stool; after soaking, blot the skin dry with a soft cloth, apply Vaseline or Desitin ointment to the anal area, and place a cotton ball just outside your anus to absorb leaking fluid. What Happens During a Colonoscopy During a colonoscopy, an experienced physician uses a colonoscope (a long, flexible instrument about 1/2 inch in diameter) to view the lining of the colon. The colonoscope is inserted into the rectum and advanced through the large intestine. If necessary during a colonoscopy, small amounts of tissue can be removed for analysis (a biopsy) and polyps can be identified and entirely removed. In many cases, a colonoscopy allows accurate diagnosis and treatment of colorectal problems without the need for a major operation. Revised 11/2016 5 ?You are asked to wear a hospital gown and an IV will be started. ?You are given a pain reliever and a sedative intravenously (in your vein). You will feel relaxed and somewhat drowsy. ?You will lie on your left side, with your knees drawn up towards your chest. ?A small amount of air is used to expand the colon so the physician can see the colon holly. ?You may feel mild cramping during the procedure. Cramping can be reduced by taking slow, deep breaths. ?The colonoscope is slowly withdrawn while the lining of your bowel is carefully examined. ?The procedure lasts from 30 minutes to 1 hour. What Happens After a Colonoscopy ?You will stay in a recovery room for observation until you are ready for discharge. ?You may feel some cramping or a sensation of having gas, but this quickly passes. ?If sedation has been given, a responsible family member or friend must drive you home. ?Avoid alcohol, driving, and operating machinery for 24 hours following the procedure. ?Unless otherwise instructed, you may immediately return to your normal diet. We recommend you wait until the day after your procedure to resume normal activities. ?If polyps were removed or a biopsy was taken, the physician performing your colonoscopy will tell you when it is safe to resume taking your blood thinners. ?If a biopsy was taken or a polyp was removed, you may notice a little amount of rectal bleeding for 1 to 2 days after the procedure. If you have a large amount of rectal bleeding, high or persistent fevers, or severe abdominal pain within the next 2 weeks, please go to your local emergency room and call the physician who performed your exam. 6 Revised 11/2016 Copyright 9988-1591 [facility]. All rights reserved. Revised 11/2016 documented in this encounter [facility] 05-26-2023 History of Presen t illness Narrative CC: Patient presents with: Physical: physical no forms HPI Katherine Flores is a 58 year old female who presents today for annual physical exam. Exercise: Walking is my only exercise because of my back, usually walks daily when weather allows Diet: Eats healthy for the most part- doing well getting in veggies an Caffeine: 3 cans of diet coke/day - her alternative to coffee. 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 She is doing well on her current dose of Synthroid. Had it changed a year ago, and symptoms have improved (was c/o thinning hair, excessive fatigue) Denies fatigue, cold intolerance, constipation, swelling in feet, weight gain, and hair loss. TSH Date Value 05/20/2023 2.300 mIU/L 09/04/2022 3.760 mIU/L 05/14/2021 4.790 uU/mL 05/11/2020 3.150 uU/mL Hx of chronic pain in neck and back, x 2 surgeries and multiple injections-- currently receives them in lumbar and cervical, last received in 02/[address] Magallon for CTS, OA of knees Eczema: Sees Nighat Dumont PA-C, sees 3 times/year Glaucoma: Sees Dr. Márquez at [facility] Has well women's exam through Erica Ji CNP-- last saw in 12/26, last pap was in 12/25 The 10-year ASCVD risk score (Sommer BALDWIN, et al., 2019) is: 3% Values used to calculate the score: Age: 58 years Sex: Female Is Non- : No Diabetic: No Tobacco smoker: No Systolic Blood Pressure: 138 mmHg Is BP treated: No HDL Cholesterol: 72 mg/dL Total Cholesterol: 183 mg/dL REVIEW OF SYSTEMS General: no fevers, no chills, no night sweats, no recurrent infections, no change in appetite, no change in energy, and no significant changes in weight HEENT: no frequent or significant headaches, no changes in hearing, no visual changes, no nose bleeds, no sinus or nasal problems Neck: no lumps, no pain , and no swelling Respiratory: no cough, no wheezing, no shortness of breath, no hemoptysis Cardiovascular: no chest pain, no chest pressure, no palpitations, no swelling, and no decrease in exercise tolerance GI: No nausea, vomiting, or diarrhea, No heartburn or reflux symptoms, and Negative for abdominal discomfort, blood in stools or black stools, change in bowel habit, heart burn, nausea, vomiting : No history of dysuria, frequency or incontinence COGNOS CONSULTANT: Negative for abnormal vaginal bleeding, abnormal vaginal discharge Musculoskeletal: Negative for joint pain or swelling or muscle pain Skin: Negative for lesions, rash, and itching, eczema around eyes well-controlled Psych: Negative for sleep disturbance, mood disorder and recent psychosocial stressors Hematologic/Lymph: Negative for prolonged bleeding, bruising easily or swollen nodes Endocrine: no fatigue, no weight gain, no weight loss, no hair loss, no dry skin, no cold intolerance, no heat intolerance, no neck pain/pressure, no polyuria, no polyphagia, and no polydipsia Neurologic: +Numbness and tingling in legs, arms and hands related to spinal issues-- No headache, weakness, neck stiffness, tremor, vertigo, dizziness, memory loss, syncope. PAST MEDICAL HISTORY Diagnosis Date Abnormal mammogram, unspecified 06/21/2009 Biceps tendinitis on right 01/30/2016 Cervical stenosis of spine Chronic right shoulder pain 01/30/2016 Encounter for insertion or removal of intrauterine contraceptive device 07/15/2008 Mirena Fibrocystic disease of breast 01/15/2010 Hypothyroid 08/2009 Osteoarthritis knees- follows with Ortho Other acquired deformity of toe 08/20/2010 PCB (post coital bleeding) PMH - PAST MEDICAL HISTORY OF broken back PMH - PAST MEDICAL HISTORY OF bartholin cyst PAST SURGICAL HISTORY Procedure Laterality Date BX BREAST PERC VACUUM/ROTN 06/23/09 right CHOLECYSTECTOMY COLONOSCOPY FLX DX W/COLLJ SPEC WHEN PFRMD 07/09/2013 Colonoscopy DILATION & CURETTAGE DX&/THER NONOBSTETRIC 2016 Dilation & curettage HYSTEROSCOPY 2016 for removal of cervical/uterine polyp. IUD INSERTION ([employer] DEPT)_*FL 07/15/2008 Mirena PAST SURGICAL HISTORY OF two back surgeries plus numerous injections PAST SURGICAL HISTORY OF 2004,2005 right foot surgery, bunion removal PAST SURGICAL HISTORY OF 09/14 Right great toe joint replacement PAST SURGICAL HISTORY OF 10-09-11 left bunioncectomy with biopro implant [facility],DURING BREAST BX 06/23/09 TONSILLECTOMY PRIMARY/SECONDARY AGE 10/> ALLERGIES No Known Allergies MEDICATIONS cyclobenzaprine (FLEXERIL) 10 mg tablet Take 1 tablet by mouth three times daily as needed for muscle spasm. clonazePAM (KLONOPIN) 0.5 mg tablet Take 1 tablet by mouth once daily as needed for anxiety for up to 30 days. levothyroxine (SYNTHROID) 50 mcg tablet Take 1 tablet by mouth once daily. Except take 2 tablets on Friday latanoprost (XALATAN) 0.005 % ophthalmic solution 1 Drop daily at bedtime. traMADol (ULTRAM) 50 mg tablet Take 1 tablet by mouth every 6 hours as needed for pain. conjugated estrogens (PREMARIN) vaginal cream Use a pea sized amount to the vaginal area 3 times a week cholecalciferol (VITAMIN D3) 1,000 unit tab tablet Take 1,000 Units by mouth once daily. biotin 5 mg tab Take 5 mg by mouth once daily. FAMILY HISTORY Problem Relation Age of Onset Diabetes Mother Hypertension Mother Lipids Mother other (parkinsons) Mother Prostate Cancer Father Diabetes Father prediabetic Hypertension Father Kidney Disease Father FSGS COPD Father other (PAD) Father Diabetes Paternal Grandmother Breast Cancer Other maternal cousin Diabetes Brother Hypertension Brother other (kidney disease) Brother kidney and pancreas transplant 04/12 Social History Tobacco Use Smoking status: Never Smokeless tobacco: Never Substance Use Topics Alcohol use: Yes Comment: very rare Drug use: No PHYSICAL EXAM BP 138/70 (BP Site: Left Arm, BP Position: Sitting, BP Cuff Size: Regular Adult) Pulse 82 Temp 36.8 C (98.3 F) Resp 12 Ht 152.4 cm (5') Wt 52.6 kg (116 lb) LMP 07/15/2008 SpO2 100% BMI 22.65 kg/m General Appearance: well appearing, in no acute distress, alert Pysch: mood and affect broad and appropriate Skin: Skin color, texture, turgor normal for age; Head: normocephalic, atraumatic Lymph nodes: No cervical lymphadenopathy Lungs: Lungs clear to auscultation. No wheezing, rhonchi, rales. Heart: RRR without murmur, gallop, or rubs. No ectopy Abdomen: Normal abdominal exam Extremities: No gross deformities, significant edema, skin discoloration, clubbing or cyanosis. Neurological: Gait normal. No focal neurological deficits. Sensation grossly intact. HIV SCREENING Never done SHINGRIX VACCINE(1 of 2) Never done COVID-19 VACCINE(3 - Pfizer series) due on 03/19/2021 PAP TESTING due on 07/10/2022 HPV TESTING due on 07/10/2022 DEPRESSION ASSESSMENT Never done ANNUAL PCP TEAM CHRONIC DISEASE VISIT due on 05/24/2023 COLORECTAL CANCER SCREENING due on 07/09/2023 INFLUENZA(1) due on 06/06/2023 MAMMOGRAM due on 10/14/2023 DIABETES SCREEN due on 05/20/2026 DTAP,TDAP,TD(2 - Td or Tdap) due on 05/21/2027 LIPID SCREEN due on 05/20/2028 HEPATITIS C SCREENING Completed ASSESSMENT/PLAN: 1. Well adult exam - ICD9: V70.0, ICD10: Z00.00 (primary diagnosis) - Counseled on healthy diet and regular exercise - Calcium intake with supplements or by diet of 1000 mg/day for under 50, 2085-2482 mg/day for 50+ Continue with routine mammograms and Pap/pelvics through [employer] - Colorectal cancer screening recommended - agrees to Colonoscopy - Patient was counseled [id number] by myself (the billing provider) for the following immunizations and vaccine components, including side effects: Shingrix. She will check with insurance to see if they adequately cover it. 2. Depression screening - ICD9: V79.0, ICD10: Z13.31 Depression screening negative - DEPRESSION SCREENING/ASSESSMENT 3. White coat syndrome without diagnosis of hypertension - ICD9: 796.2, ICD10: R03.0 Mildly elevated in office, but patient reports she has whitecoat syndrome-blood pressures are within normal range when she checks at home - Encouraged dietary sodium restriction/DASH diet - Recommended regular aerobic exercise. - Recommend home blood pressure monitoring, to bring results in on next visit 4. Acquired hypothyroidism - ICD9: 244.9, ICD10: E03.9 - Instructed patient on importance of taking on an empty stomach either first thing in the morning or at bedtime. - continue current dose of Synthroid 0.050 mg - LEVOTHYROXINE 50 MCG TABLET Prescription instructions reviewed with patient as applicable. Potential red flag symptoms discussed with the patient. Reviewed appropriate action plan to take if red flag symptoms occur. Patient agreeable to treatment plan. Jose Manuel Waters PA-C [facility] OPEN ACCESS QUESTIONNAIRE 1. Are you currently having any new or unusual stomach/gastrointestinal issues at this time such as constipation, diarrhea, abdominal pain, rectal bleeding etc?No 2. Do you have any difficulty swallowing? No 3. Do you have any implanted devices such as a defibrillator, pacemaker, cardiac stents or deep brain stimulator? No 4. Do you take any Blood thinners such as Coumadin, Plavix, Xarelto, Eliquis, Brilinta or any other blood thinner? No 5. Do you have any new or past cardiac (heart) or pulmonary (lung) issues? No 6. Do you currently use any oxygen? No 7. Have you been hospitalized in the past 6 weeks? No 8. Have you had difficulty with anesthesia previously re: Difficult intubation? No Other difficulty or allergic reaction to anesthesia other than post op N/V? No 9. Are you on dialysis? No 10. Do you have any bleeding disorders such as hemophilia or Factor 5? No 11. Are you an Insulin Dependent Diabetic? No IF ANY OF THE TOP ELEVEN QUESTIONS ARE ANSWERED YES PLEASE SCHEDULE THE PATIENT FOR A CONSULT. N/A 12. Is the patient's BMI 40 or greater? No:Body mass index is 22.65 kg/m .. 13. Do you take any narcotics or anti-Anxiety medications? Yes / uses clonazepam very sparingly 14. Do you use any illegal or recreational drugs including marijuana? No 15. Any alcohol use: Very rarely 16. Have you been diagnosed with chronic liver disease such as hepatitis or cirrhosis? No 17. Do you have a seizure disorder? No 18. Do you have ulcerative colitis or Crohn's disease? No 19. Are you or could you be ? No 20. Any other important health information we should be made aware of prior to your colonoscopy? No To be completed by LIP: Did patient have MAC anesthesia with a previous endoscopy procedure? No Patient appropriate for Open Access Colonoscopy: Yes: appropriate for Open Access Procedure Checklist: Prior to closing the encounter: Complete questionnaire: Yes Confirm Prep order has been Ordered/Pended: Yes. Patient's procedure could be delayed if not given the script for the prep. Please ensure the prep is escripted to pharmacy or printed. Instructions for the prep will print upon filing or pending this smartset. Please send all open access questionnaires to [facility] Pool #[id number] documented in this encounter [facility] 04-12-2023 Miscellaneous Notes The following approved medication requests have been transmitted electronically. Requested Prescriptions Signed Prescriptions Disp Refills cyclobenzaprine (FLEXERIL) 10 mg tablet 90 tablet 2 Sig: Take 1 tablet by mouth three times daily as needed for muscle spasm. Authorizing Provider: AZAR SYED APRN.CNP documented in this encounter [facility] 03-13-2023 Miscellaneous Notes The following approved medication requests have been transmitted electronically. Requested Prescriptions Signed Prescriptions Disp Refills clonazePAM (KLONOPIN) 0.5 mg tablet 30 tablet 1 Sig: Take 1 tablet by mouth once daily as needed for anxiety for up to 30 days. Authorizing Provider: AZAR SYED APRN.CNP Provider: Dr. Kyle Sánchez and Azar Syed CNP patient requesting refill. Please E-Scribe Last OV: 01/07/2023 with Azar Syde CNP Future OV: N/A Last prescribed: 11/01/2022 Requested Prescriptions Pending Prescriptions Disp Refills clonazePAM (KLONOPIN) 0.5 mg tablet 30 tablet 1 Sig: Take 1 tablet by mouth once daily as needed for anxiety for up to 30 days. Request sent to provider to review Farnaz Koberna RN documented in this encounter [facility] 01-07-2023 Note HNO ID: [id number] Author: Azar Syed APRN.LANDSCAPE ARCHITECT Service: ? Author Type: Nurse Practitioner Type: Progress Notes Filed: 01/07/2023 8:04 AM Note Text: SUBJECTIVE: Katherine Flores presents to [facility] for a follow up appointment Since the last visit, Katherine Flores states the pain has been stable. Current pain intensity is 4 on a scale of 0-10. Pain located in Neck area and radiates down the bilateral UEs. Pain described as burning and pinch The medications are effective. REVIEW OF SYSTEMS: Constitutional: (-) Weight Gain (-) Weight Loss (+) Fatigue Cardiovascular: (-) hx heart surgery (-) Pacemaker Respiratory: (-) Shortness of Breath (-) Cough (-) Snoring Gastrointestinal: (-) Incontinence (-) Diarrhea (-) Constipation (-) Nausea/Vomiting Endocrine: (+) Thyroid Disorder (-) Diabetes Hematologic: (-) Prolonged Bleeding (-) Easy Bruising Genitourinary: (-) Incontinence (-) Frequency (-) Urinary Urgency Skin: (-) Open sores/wound Neurologic: (-) Headache (-) Double Vision Psychiatric: (-) Depression (-) Anxiety (-) Personal History of Alcohol or Substance Abuse (-) Family History of Alcohol or Substance Abuse CHIEF COMPLAINT:Patient presents with: Follow Up: Neck pain OBJECTIVE: Pulse 69 Ht 5' 0 (1.52m) Wt 123 lb 9.6 oz (56.1kg) SpO2 100% LMP 07/15/2008 BMI 24.14 kg/(m2). PHYSICAL EXAMINATION: General appearance: Well appearing, in no acute distress, alert and oriented x3 Skin: Skin color, texture, turgor normal, no rashes or lesions Neck: Tenderness to palpation over the cervical paraspinous muscles R>L. ROM intact Cardiovascular: Regular, rate and rhythm Lungs: Normal respiratory rate and rhythm, Lungs clear to auscultation Back: Intact range of motion without pain reproduction. Spine: DeniesTenderness on palpation: Lumbar/Pelvic none Extremities: No deformities, edema, or skin discoloration. Good capillary refill. Musculoskeletal: No Joint pain, no edema , no extremity tenderness Neuro: No loss of sensation is noted. Motor skills intact Station and Gait: Normal stance, normal gait. Motor: Exhibits full strength in all four extremities. Trigger points: paravertebral cervical muscles. ASSESSMENT: Assessment : Patient presents for a follow up visit for medication refills Patient has a history of low back pain which is stable since lumbar injection in Jun 2022 Patient has a history of neck pain that radiates down the bilateral UEs. Her last EDDIE was in March 2022. She would like to repeat the C6-7 EDDIE Patient takes flexeril and Klonopin to help manage her chronic pain. No refills needed today Encounter Diagnosis ICD-10-CM 1. Radiculopathy, lumbar region M54.16 2. Cervical radiculopathy M54.12 EPI CERV OR THORC W/IMAGING 3. Spinal stenosis of lumbar region with neurogenic claudication M48.062 4. Spinal stenosis of cervical region M48.02 EPI CERV OR THORC W/IMAGING 5. DDD (degenerative disc disease), cervical M50.30 PDMP website checked and validated. All prescriptions have been APPROPRIATELY filled. No suspicious activity was identified. 01/06/2023 by Azar Syed APRN.LANDSCAPE ARCHITECT Narcotic Agreement reviewed and signed?: N/A on January 06, 2023 The pain panel was N/A PLAN: Injection history was reviewed. Medication use and compliance were reviewed. 1. Continue medication management through the Pain Management Center 2. No refills needed today 3. Interventional procedure options discussed. Ordered repeat C6-7 EDDIE 4. Encouraged regular home exercise program. 5) F/U in 3 months I spent a total of 20 minutes on the date of the service which included preparing to see the patient, [id number] patient care, completing clinical documentation, performing a medically appropriate examination, and ordering medications, tests, or procedures. The above plan and management options were discussed at length with patient. Patient is in agreement with the above and verbalized understanding. Azar Syed APRN, LANDSCAPE ARCHITECT January 06, 2023 [facility] 01-07-2023 History of Presen t illness Narrative SUBJECTIVE: Katherine Flores presents to [facility] Department for a follow up appointment Since the last visit, Katherine Flores states the pain has been stable. Current pain intensity is 4 on a scale of 0-10. Pain located in Neck area and radiates down the bilateral UEs. Pain described as burning and pinch The medications are effective. REVIEW OF SYSTEMS: Constitutional: (-) Weight Gain (-) Weight Loss (+) Fatigue Cardiovascular: (-) hx heart surgery (-) Pacemaker Respiratory: (-) Shortness of Breath (-) Cough (-) Snoring Gastrointestinal: (-) Incontinence (-) Diarrhea (-) Constipation (-) Nausea/Vomiting Endocrine: (+) Thyroid Disorder (-) Diabetes Hematologic: (-) Prolonged Bleeding (-) Easy Bruising Genitourinary: (-) Incontinence (-) Frequency (-) Urinary Urgency Skin: (-) Open sores/wound Neurologic: (-) Headache (-) Double Vision Psychiatric: (-) Depression (-) Anxiety (-) Personal History of Alcohol or Substance Abuse (-) Family History of Alcohol or Substance Abuse CHIEF COMPLAINT:Patient presents with: Follow Up: Neck pain OBJECTIVE: Pulse 69 Ht 5' 0 (1.52m) Wt 123 lb 9.6 oz (56.1kg) SpO2 100% LMP 07/15/2008 BMI 24.14 kg/(m^2). PHYSICAL EXAMINATION: General appearance: Well appearing, in no acute distress, alert and oriented x3 Skin: Skin color, texture, turgor normal, no rashes or lesions Neck: Tenderness to palpation over the cervical paraspinous muscles R>L. ROM intact Cardiovascular: Regular, rate and rhythm Lungs: Normal respiratory rate and rhythm, Lungs clear to auscultation Back: Intact range of motion without pain reproduction. Spine: DeniesTenderness on palpation: Lumbar/Pelvic none Extremities: No deformities, edema, or skin discoloration. Good capillary refill. Musculoskeletal: No Joint pain, no edema , no extremity tenderness Neuro: No loss of sensation is noted. Motor skills intact Station and Gait: Normal stance, normal gait. Motor: Exhibits full strength in all four extremities. Trigger points: paravertebral cervical muscles. ASSESSMENT: Assessment : Patient presents for a follow up visit for medication refills Patient has a history of low back pain which is stable since lumbar injection in Jun 2022 Patient has a history of neck pain that radiates down the bilateral UEs. Her last EDDIE was in March 2022. She would like to repeat the C6-7 EDDIE Patient takes flexeril and Klonopin to help manage her chronic pain. No refills needed today Encounter Diagnosis ICD-10-CM 1. Radiculopathy, lumbar region M54.16 2. Cervical radiculopathy M54.12 EPI CERV OR THORC W/IMAGING 3. Spinal stenosis of lumbar region with neurogenic claudication M48.062 4. Spinal stenosis of cervical region M48.02 EPI CERV OR THORC W/IMAGING 5. DDD (degenerative disc disease), cervical M50.30 PDMP website checked and validated. All prescriptions have been APPROPRIATELY filled. No suspicious activity was identified. 01/06/2023 by Azar Syed APRN.IVA Narcotic Agreement reviewed and signed?: N/A on January 06, 2023 The pain panel was N/A PLAN: Injection history was reviewed. Medication use and compliance were reviewed. 1. Continue medication management through the Pain Management Center 2. No refills needed today 3. Interventional procedure options discussed. Ordered repeat C6-7 EDDIE 4. Encouraged regular home exercise program. 5) F/U in 3 months I spent a total of 20 minutes on the date of the service which included preparing to see the patient, [id number] patient care, completing clinical documentation, performing a medically appropriate examination, and ordering medications, tests, or procedures. The above plan and management options were discussed at length with patient. Patient is in agreement with the above and verbalized understanding. Azar Syed APRN, IVA January 06, 2023 documented in this encounter [facility] 11-20-2022 Note Patient Outreach (IN [facility]) KATHERINE FLORES ([id number]) 1965 F Date Time Provider Department 11/20/22 MARIAM BRANDON During your visit today, we recorded the following information about you: Allergies As of Date: 11/20/2022 Noted Allergy Reaction NO KNOWN ALLERGIES 03/28/2004 Date Reviewed: 06/27/2022 Reviewed by: Sarai Dan RN - Fully Assessed Visit Diagnosis:Encounter for screening mammogram for breast cancer [Z12.31] Order(s):[facility] S[facility]EN[facility] [[id number]] Order #: [id number] FUTURE Prescriptions as of 11/25/2022 - clonazePAM (KLONOPIN) 0.5 mg tablet Take 1 tablet by mouth once daily as needed for anxiety for up to 30 days. - cyclobenzaprine (FLEXERIL) 10 mg tablet Take 1 tablet by mouth three times daily as needed for muscle spasm. - levothyroxine (SYNTHROID) 50 mcg tablet Take 1 tablet by mouth once daily. Except take 2 tablets on Friday - latanoprost (XALATAN) 0.005 % ophthalmic solution 1 Drop daily at bedtime. - traMADol (ULTRAM) 50 mg tablet Take 1 tablet by mouth every 6 hours as needed for pain. - conjugated estrogens (PREMARIN) vaginal cream Use a pea sized amount to the vaginal area 3 times a week - cholecalciferol (VITAMIN D3) 1,000 unit tab tablet Take 1,000 Units by mouth once daily. - biotin 5 mg tab Take 5 mg by mouth once daily. Problem List As Of Date 11/20/2022 Noted Resolved Thoracic or lumbosacral neuritis or radiculitis*03/28/2004 05/21/2017 Thoracic spine pain [M54.6] 03/28/2004 KYPHOSIS [737.1] 03/28/2004 Lumbago with sciatica [M54.40] 03/28/2004 Pain in joint, lower leg [M25.569] 02/14/2009 Nonspecific abnormal results of thyroid functio*04/06/2009 02/29/2016 Fibrocystic disease of breast [N60.19] 01/15/2010 05/21/2017 Other acquired deformity of toe [M20.5X9] 08/20/2010 05/21/2017 Cervical radiculopathy [M54.12] 12/20/2011 Cervical stenosis (uterine cervix) [N88.2] 12/20/2011 Cervical spondylosis [M47.812] 12/20/2011 DDD (degenerative disc disease), cervical [M50.*12/20/2011 Hypothyroidism [E03.9] 01/27/2012 Anxiety [F41.9] 01/14/2014 Closed compression fracture of thoracic vertebr*04/11/2014 Swelling of joint, knee, right [M25.461] 04/19/2014 Right knee pain [M25.561] 04/19/2014 Impingement syndrome, shoulder [M75.40] 09/14/2015 Cervical radiculitis [M54.12] 09/14/2015 05/21/2017 Biceps tendinitis on right [M75.21] 01/30/2016 05/21/2017 Chronic right shoulder pain [M25.511, G89.29] 01/30/2016 05/21/2017 PCB (post coital bleeding) [N93.0] 05/21/2017 Intervertebral disc disorder with radiculopathy*09/01/2018 Radiculopathy, lumbar region [M54.16] 09/01/2018 Degenerative disc disease, lumbar [M51.36] 09/01/2018 Encounter Status:Closed by SOTO, PRODUSER on 11/25/22 [facility] 10-31-2022 Miscellaneous Notes Provider: Dr. Kyle Sánchez and Azar Syed CNP patient requesting refill. Please E-Scribe Last OV: 04/29/2022 with Azar Syed CNP Future OV: 01/06/2023 with Azar Syed CNP Last prescribed: 06/18/2022 Requested Prescriptions Pending Prescriptions Disp Refills clonazePAM (KLONOPIN) 0.5 mg tablet 30 tablet 1 Sig: Take 1 tablet by mouth once daily as needed for anxiety for up to 30 days. Request sent to provider to review Farnaz Martínez RN documented in this encounter [facility] 07-25-2022 Miscellaneous Notes Patient notified. Please let patient know we are going to increase the thyroid medication to 1 tablet every day except 2 tablets on Friday. We will recheck in 6 weeks. documented in this encounter [facility] 06-26-2022 Miscellaneous Notes Patient notified. No dosing changes at this time. Will recheck in 6 weeks and make dosing changes if needed. Thank you Kelsey Peters APRN.CNP Patient states she takes medication every morning between 6:45 and 7:15 without fail. No recent dosing changes but did have Covid 4 weeks ago. Please ask patient if she is taking the levothyroxine daily as ordered. It is slightly abnormal, but completely different than level 4 weeks ago which makes me cautious at changing the dosing. Has there been recent dose changes? Thank you Kelsey Peters APRN.CNP documented in this encounter [facility] 06-18-2022 Miscellaneous Notes The following approved medication requests have been transmitted electronically. Requested Prescriptions Signed Prescriptions Disp Refills clonazePAM (KLONOPIN) 0.5 mg tablet 30 tablet 1 Sig: Take 1 tablet by mouth once daily as needed for anxiety for up to 30 days. Authorizing Provider: AZAR SYED APRN.CNP Provider: Dr. Kyle Sánchez and Azar Syed CNP patient requesting refill. Please E-Scribe Last OV: 04/29/2022 with Jayden Syed CNP Future OV: N/A Last prescribed: 02/04/2022 Requested Prescriptions Pending Prescriptions Disp Refills clonazePAM (KLONOPIN) 0.5 mg tablet 30 tablet 1 Sig: Take 1 tablet by mouth once daily as needed for anxiety for up to 30 days. Request sent to provider to review Farnaz Martínez RN documented in this encounter [facility] 05-24-2022 History of Presen t illness Narrative Reason for Visit Patient presents with: Physical: post covid x 11 days, refills needed Katherine Flores is a 57 year old female who presents here today for CPE. Health Maintenance HIV SCREENING SHINGRIX VACCINE(1 of 2) COVID-19 VACCINE(3 - Booster for Pfizer series) PAP TESTING HPV TESTING HPI Post covid 11 days. Has not been using over the counter. Has not had a fever since last Friday. Diet- she eats very healthy mostly, walking and spine issues, broken back, surgeries she had, lot of stenosis, She does keep that under control a lot. Sleep- very good Stress-not much stress Exercise- she walks from 1 mile to 4 miles. Her white count is always been on the lower side, but due to covid it recently did come up. She has been trying to loose weight and she was walking and eating better and lost weight . No problem-specific Assessment & Plan notes found for this encounter. PAST MEDICAL HISTORY Diagnosis Date Abnormal mammogram, unspecified 06/21/2009 Biceps tendinitis on right 01/30/2016 Cervical stenosis of spine Chronic right shoulder pain 01/30/2016 Encounter for insertion or removal of intrauterine contraceptive device 07/15/2008 Mirena Fibrocystic disease of breast 01/15/2010 Hypothyroid 08/2009 Osteoarthritis knees- follows with Ortho Other acquired deformity of toe 08/20/2010 PCB (post coital bleeding) PMH - PAST MEDICAL HISTORY OF broken back PMH - PAST MEDICAL HISTORY OF bartholin cyst PAST SURGICAL HISTORY Procedure Laterality Date BX BREAST PERC VACUUM/ROTN 06/23/09 right CHOLECYSTECTOMY COLONOSCOPY FLX DX W/COLLJ SPEC WHEN PFRMD 07/09/2013 Colonoscopy DILATION & CURETTAGE DX&/THER NONOBSTETRIC 2016 Dilation & curettage HYSTEROSCOPY 2016 for removal of cervical/uterine polyp. IUD INSERTION ([facility] [employer])_*FL 07/15/2008 Mirena PAST SURGICAL HISTORY OF two back surgeries plus numerous injections PAST SURGICAL HISTORY OF 2004,2005 right foot surgery, bunion removal PAST SURGICAL HISTORY OF 09/14 Right great toe joint replacement PAST SURGICAL HISTORY OF 10-09-11 left bunioncectomy with biopro implant [facility],PERC,DURING BREAST BX 06/23/09 TONSILLECTOMY PRIMARY/SECONDARY AGE 10/ FAMILY HISTORY Problem Relation Age of Onset Diabetes Mother Hypertension Mother Lipids Mother other (parkinsons) Mother Prostate Cancer Father Diabetes Father prediabetic Hypertension Father Kidney Disease Father FSGS COPD Father other (PAD) Father Diabetes Paternal Grandmother Breast Cancer Other maternal cousin Diabetes Brother Hypertension Brother other (kidney disease) Brother kidney and pancreas transplant 04/12 Social History Tobacco Use Smoking status: Never Smokeless tobacco: Never Substance Use Topics Alcohol use: Yes Comment: very rare Drug use: No Past medical history, appointments, medications, allergies reviewed. Pertinent Lab/Diagnostic Studies are reviewed and discussed today Current Outpatient Medications: cyclobenzaprine (FLEXERIL) 10 mg tablet clonazePAM (KLONOPIN) 0.5 mg tablet levothyroxine (SYNTHROID) 50 mcg tablet traMADol (ULTRAM) 50 mg tablet conjugated estrogens (PREMARIN) vaginal cream cholecalciferol (VITAMIN D3) 1,000 unit tab tablet biotin 5 mg tab Review of Systems CONSTITUTIONAL: No fevers, chills, nightsweats, unintended weight loss HEENT: Denies frequent or severe heaches, nasal congestion/sinus symptoms, problematic allergy problems. EYES: No diplopia or blurry vision. CARDIOVASCULAR: No chest pain, dyspnea, palpitations, orthopnea, PND, ankle edema. PULM: No dyspnea, unexplained cough. GI: No dysphagia/odynophagia, problematic reflux, constipation, diarrhea, changes in stool habits, hematochezia, melena. : No new urinary complaints, including dysuria, gross hematuria or pyuria. NEURO: No new balance problems, peripheral weakness/paresthesias or numbness of concern. MUSC-SKEL: No new joint pain, swelling, or erythema. PSY: No concerns regarding depression, anxiety or panic. INTEGUMENTARY: No new skin changes (rash, new or changing mole, new growth) Physical Exam BP 120/62 (BP Site: Left Arm, BP Position: Sitting, BP Cuff Size: Regular Adult) Pulse 82 Temp 37.4 C (99.4 F) Resp 12 Ht 152.4 cm (5') Wt 52.6 kg (116 lb) LMP 07/15/2008 SpO2 99% BMI 22.65 kg/m General appearance: Well appearing, alert, in no acute distress, well-hydrated, well nourished. Skin: Skin color, texture, turgor normal, no suspicious rashes or lesions Head: Normocephalic, no masses, lesions, tenderness or abnormalities Eyes: Anicteric sclera. Pupils are equally round and reactive to light. Extraocular movements are intact. Ears: External ears normal, canals clear Nose/Sinuses: Nares normal, septum midline, mucosa normal, no drainage or sinus tenderness Oropharynx: Lips, mucosa, and tongue normal, teeth and gums normal, oropharynx normal Neck: Supple, no adenopathy; thyroid symmetric, normal size, no bruits Back: Normal exam Lungs: Lungs clear to auscultation. No wheezing, rhonchi, rales Heart: RRR without murmur, gallop, or rubs. No ectopy Abdomen: Normal abdominal exam, Abdomen soft, non-tender. Bowel sounds normal. No masses, organomegaly Extremities: No deformities, edema, skin discoloration, clubbing or cyanosis. Good capillary refill. Musculoskeletal: No joint swelling, deformity, or tenderness Peripheral pulses: Normal Neuro: Gait normal. Reflexes normal and symmetric. Sensation grossly intact. ASSESSMENT/PLAN: 1. Annual physical exam - ICD9: V70.0, ICD10: Z00.00 (primary diagnosis) To request records for the pap and bmd. 2. Acquired hypothyroidism - ICD9: 244.9, ICD10: E03.9 Recheck thyroid. - LEVOTHYROXINE 50 MCG TABLET - TSH BLD Mariam Brandon MD documented in this encounter [facility] 05-02-2022 Miscellaneous Notes Update sent via [employer] message at this time Spoke with Dr. Sánchez and he recommends left L4-5 TFESI Injection order signed off Please call patient to schedule documented in this encounter [facility] 04-28-2022 History of Presen t illness Narrative SUBJECTIVE: Katherine Flores presents to [facility] for a follow up appointment for injection. Since the last visit, Katherine Flores states the pain has been better. Current pain intensity is 2 on a scale of 0-10. Pain located in Neck area and radiates down the anterior arm. Pain described as sharp. The patient Reports numbness and tingling. Symptoms interfere with physical activity, lifting and turning head. Pain is exacerbated by sitting upright for long periods of time. Pain is mitigated by medications, ice and heat. The patient is overall improved with the injections by 60%. The medications are effective. The patient states the last dose of . Flexeril was last night at 8 pm Ultram/tramadol: Patient cannot recall last time this medication was taken. REVIEW OF SYSTEMS: Constitutional: (-) Weight Gain (-) Weight Loss (+) Fatigue Cardiovascular: (-) hx heart surgery (-) Pacemaker Respiratory: (-) Shortness of Breath (-) Cough (-) Snoring Gastrointestinal: (-) Incontinence (-) Diarrhea (+) Constipation (-) Nausea/Vomiting Endocrine: (+) Thyroid Disorder (-) Diabetes Hematologic: (-) Prolonged Bleeding (-) Easy Bruising Genitourinary: (-) Incontinence (-) Frequency (-) Urinary Urgency Skin: (-) Open sores/wound Neurologic: (-) Headache (-) Double Vision Psychiatric: (-) Depression (-) Anxiety (-) Personal History of Alcohol or Substance Abuse (-) Family History of Alcohol or Substance Abuse CHIEF COMPLAINT:Patient presents with: Injection Followup OBJECTIVE: Pulse 79 Ht 5' 0 (1.52m) Wt 123 lb 11.2 oz (56.1kg) SpO2 100% LMP 07/15/2008 BMI 24.16 kg/(m^2). PHYSICAL EXAMINATION: General appearance: Well appearing, in no acute distress, alert and oriented x3 Skin: Skin color, texture, turgor normal, no rashes or lesions Neck: Tenderness to palpation over the cervical paraspinous muscles R>L. ROM intact Cardiovascular: Regular, rate and rhythm Lungs: Normal respiratory rate and rhythm, Lungs clear to auscultation Back: Intact range of motion with pain reproduction. Spine: Reports Tenderness on palpation: Lumbar- left paraspinals Extremities: No deformities, edema, or skin discoloration. Good capillary refill. Musculoskeletal: No Joint pain, no edema , no extremity tenderness Neuro: No loss of sensation is noted. Motor skills intact Station and Gait: Normal stance, normal gait. Motor: Exhibits full strength in all four extremities. Trigger points: none. ASSESSMENT: Assessment : Patient presents for an injection follow up Patient had a C6-7 EDDIE on 03-07-2022 and reports 60% of improvement Patient has a history of neck pain that radiates down the bilateral UEs, the right side is worse The injection reduced the shooting pains, numbness is intermittent Patient has low back pain that is radiating from the left knee to the foot, anteriorly She reports she exercises and walks daily. The low back pain increased on 04/08 with walking and then x2 days later she experienced numbness and tingling from the left knee to the foot. Will discuss with Gonzalo Pacheco is patient is a candidate for TFESI Encounter Diagnosis ICD-10-CM 1. Radiculopathy, lumbar region M54.16 2. Cervical radiculopathy M54.12 3. DDD (degenerative disc disease), cervical M50.30 4. Spinal stenosis of cervical region M48.02 5. Spinal stenosis of lumbar region with neurogenic claudication M48.062 PDMP website checked and validated. All prescriptions have been APPROPRIATELY filled. No suspicious activity was identified. 04/28/2022 by Azar Syed APRN.LANDSCAPE ARCHITECT Narcotic Agreement reviewed and signed?: N/A on April 28, 2022 The pain panel was N/A PLAN: Injection history was reviewed. Medication use and compliance were reviewed. 1. Continue medication management through the [facility] 2. No medications selected for refill. 3. Interventional procedure options discussed. May repeat EDDIE as needed. Talked with Gonzalo Pacheco and recommends a left L5-S1 TF LUZMARIA 4. Continue daily home exercise program. 5) F/U in 3 months I spent a total of 20 minutes on the date of the service which included preparing to see the patient, [id number] patient care, completing clinical documentation and performing a medically appropriate examination. The above plan and management options were discussed at length with patient. Patient is in agreement with the above and verbalized understanding. Azar Syed APRN, IVA April 28, 2022 documented in this encounter [facility] 02-04-2022 History of Presen t illness Narrative SUBJECTIVE: Katherine Flores presents to [facility] for a follow up appointment for neck pain. Since the last visit, Katherine Flores states the pain has been unchanged. Current pain intensity is 8 on a scale of 0-10. Pain located in Neck area and radiates down the posterior arm. BOTH ARMS Pain described as sharp The patient Reports PAIN EVERYWHERE. Symptoms interfere with social activities. Pain is exacerbated by exercise/movements. Pain is mitigated by lying down, ice and heat. The medications are effective and partially effective. The patient states the last dose of . Ultram/tramadol was taken at Does not know. Klonopin: every night Flexeril: last night REVIEW OF SYSTEMS: Constitutional: (-) Weight Gain (-) Weight Loss (+) Fatigue Cardiovascular: (-) hx heart surgery (-) Pacemaker Respiratory: (-) Shortness of Breath (-) Cough (-) Snoring Gastrointestinal: (-) Incontinence (-) Diarrhea (-) Constipation (-) Nausea/Vomiting Endocrine: (+) Thyroid Disorder (-) Diabetes Hematologic: (-) Prolonged Bleeding (-) Easy Bruising Genitourinary: (-) Incontinence (-) Frequency (+) Urinary Urgency Skin: (-) Open sores/wound Neurologic: (-) Headache (-) Double Vision Psychiatric: (-) Depression (-) Anxiety (-) Personal History of Alcohol or Substance Abuse (-) Family History of Alcohol or Substance Abuse CHIEF COMPLAINT:Patient presents with: Follow Up OBJECTIVE: BP 164/82 Pulse 91 Wt 126 lb 12.8 oz (57.5kg) SpO2 100% LMP 07/15/2008 PHYSICAL EXAMINATION: General appearance: Well appearing, in no acute distress, alert and oriented x3 Skin: Skin color, texture, turgor normal, no rashes or lesions Neck: Tenderness to palpation over the cervical paraspinous muscles. ROM intact Cardiovascular: Regular, rate and rhythm Lungs: Normal respiratory rate and rhythm, Lungs clear to auscultation Back: Intact range of motion without pain reproduction. Spine: DeniesTenderness on palpation: Lumbar/Pelvic none Extremities: No deformities, edema, or skin discoloration. Good capillary refill. Musculoskeletal: No Joint pain, no edema , no extremity tenderness Neuro: No loss of sensation is noted. Motor skills intact Station and Gait: Normal stance, normal gait. Motor: Exhibits full strength in all four extremities. Trigger points: paravertebral cervical muscles. ASSESSMENT: Assessment : Patient presents for medication refills. She is accompanied with her Patient has a history of chronic neck pain that radiates down the bilateral upper extremities, right side is worse than the left side Patient reports, tingling and burning in the fingers. She reports the numbness has gotten worse She reports that she does her daily exercises and stretches Patient had a C6-7 cervical epidural 02-08-2021. Patient reports that the pain started to return in September. She would like to repeat the injection Patient does see Dr. [facility] and receives injections for her right hand. Currently has on a right wrist brace Patient takes clonopin and flexeril Encounter Diagnosis ICD-10-CM 1. Radiculopathy, lumbar region M54.16 clonazePAM (KLONOPIN) 0.5 mg tablet 2. Cervical radiculopathy M54.12 clonazePAM (KLONOPIN) 0.5 mg tablet EPI CERV OR THORC W/IMAGING 3. DDD (degenerative disc disease), cervical M50.30 clonazePAM (KLONOPIN) 0.5 mg tablet EPI CERV OR THORC W/IMAGING PDMP website checked and validated. All prescriptions have been APPROPRIATELY filled. No suspicious activity was identified. 02/04/2022 by Nelsy Holder Ma Narcotic Agreement reviewed and signed?: N/A on February 04, 2022 The pain panel was N/A PLAN: Injection history was reviewed. Medication use and compliance were reviewed. 1. Continue medication management through the [facility] 2. Signed Prescriptions Disp Refills clonazePAM (KLONOPIN) 0.5 mg tablet 30 tablet 1 Sig: Take 1 tablet by mouth once daily as needed for anxiety for up to 30 days. MYRIAM Class: C-IV CARMELA: No 3. Interventional procedure options discussed. Ordered repeat C6-7 EDDIE 4. Continue regular home exercise program. 5) F/U in 3 months I spent a total of 20 minutes on the date of the service which included preparing to see the patient, [id number] patient care, completing clinical documentation, performing a medically appropriate examination and ordering medications, tests, or procedures. The above plan and management options were discussed at length with patient. Patient is in agreement with the above and verbalized understanding. Azar Syed APRN, LANDSCAPE ARCHITECT February 04, 2022 documented in this encounter [facility] documented as of this encounter (statuses as of 01/24/2022) [facility] History of Past illness Narrative* Problem Noted Date Resolved Date Biceps tendinitis on right 01/30/201605/21 Chronic right shoulder pain 01/30/201605/06 Cervical radiculitis 09/14/2015 05/21/2017 Other acquired deformity of toe 08/20/2010 05/21/2017 Fibrocystic disease of breast 01/15/2010 Nonspecific abnormal results of thyroid function study 04/06/2009 02/29/2016 Thoracic or lumbosacral neuritis or radiculitis, unspecified 03/28/2004 05/21/2017 PCB (post coital bleeding) 05/21 documented as of this encounter (statuses as of 02/04/2022) [facility] History of Past illness Narrative* Problem Noted Date Resolved Date Biceps tendinitis on right 01/30/201605/21 Chronic right shoulder pain 01/30/201605/06 Cervical radiculitis 09/14/2015 05/21/2017 Other acquired deformity of toe 08/20/2010 05/21/2017 Fibrocystic disease of breast 01/15/2010 Nonspecific abnormal results of thyroid function study 04/06/2009 02/29/2016 Thoracic or lumbosacral neuritis or radiculitis, unspecified 03/28/2004 05/21/2017 PCB (post coital bleeding) 05/21 documented as of this encounter (statuses as of 02/22/2022) [address]26-2016 History of Past illness Narrative* Problem Noted Date Resolved Date Biceps tendinitis on right 01/30/201605/21 Chronic right shoulder pain 01/30/201605/06 Cervical radiculitis 09/14/2015 05/21/2017 Other acquired deformity of toe 08/20/2010 05/21/2017 Fibrocystic disease of breast 01/15/2010 Nonspecific abnormal results of thyroid function study 04/06/2009 02/29/2016 Thoracic or lumbosacral neuritis or radiculitis, unspecified 03/28/2004 05/21/2017 PCB (post coital bleeding) 05/21 documented as of this encounter (statuses as of 03/11/2022) [place] [address] History of Past illness Narrative* Problem Noted Date Resolved Date Biceps tendinitis on right 01/30/201605/21 Chronic right shoulder pain 01/30/201605/06 Cervical radiculitis 09/14/2015 05/21/2017 Other acquired deformity of toe 08/20/2010 05/21/2017 Fibrocystic disease of breast 01/15/2010 Nonspecific abnormal results of thyroid function study 04/06/2009 02/29/2016 Thoracic or lumbosacral neuritis or radiculitis, unspecified 03/28/2004 05/21/2017 PCB (post coital bleeding) 05/21 documented as of this encounter (statuses as of 05/02/2022) [address]26-2016 History of Past illness Narrative* Problem Noted Date Resolved Date Biceps tendinitis on right 01/30/201605/21 Chronic right shoulder pain 01/30/201605/06 Cervical radiculitis 09/14/2015 05/21/2017 Other acquired deformity of toe 08/20/2010 05/21/2017 Fibrocystic disease of breast 01/15/2010 Nonspecific abnormal results of thyroid function study 04/06/2009 02/29/2016 Thoracic or lumbosacral neuritis or radiculitis, unspecified 03/28/2004 05/21/2017 PCB (post coital bleeding) 05/21 documented as of this encounter (statuses as of 05/23/2022) [address]26-2016 History of Past illness Narrative* Problem Noted Date Resolved Date Biceps tendinitis on right 01/30/201605/21 Chronic right shoulder pain 01/30/201605/06 Cervical radiculitis 09/14/2015 05/21/2017 Other acquired deformity of toe 08/20/2010 05/21/2017 Fibrocystic disease of breast 01/15/2010 Nonspecific abnormal results of thyroid function study 04/06/2009 02/29/2016 Thoracic or lumbosacral neuritis or radiculitis, unspecified 03/28/2004 05/21/2017 PCB (post coital bleeding) 05/21 documented as of this encounter (statuses as of 05/24/2022) [address]26[address]2016 History of Past illness Narrative* Problem Noted Date Resolved Date Biceps tendinitis on right 01/30/201605/21 Chronic right shoulder pain 01/30/201605/06 Cervical radiculitis 09/14/2015 05/21/2017 Other acquired deformity of toe 08/20/2010 05/21/2017 Fibrocystic disease of breast 01/15/2010 Nonspecific abnormal results of thyroid function study 04/06/2009 02/29/2016 Thoracic or lumbosacral neuritis or radiculitis, unspecified 03/28/2004 05/21/2017 PCB (post coital bleeding) 05/21 documented as of this encounter (statuses as of 06/18/2022) [address]2016 History of Past illness Narrative* Problem Noted Date Resolved Date Biceps tendinitis on right 01/30/201605/21 Chronic right shoulder pain 01/30/201605/06 Cervical radiculitis 09/14/2015 05/21/2017 Other acquired deformity of toe 08/20/2010 05/21/2017 Fibrocystic disease of breast 01/15/2010 Nonspecific abnormal results of thyroid function study 04/06/2009 02/29/2016 Thoracic or lumbosacral neuritis or radiculitis, unspecified 03/28/2004 05/21/2017 PCB (post coital bleeding) 05/21 documented as of this encounter (statuses as of 06/26/2022) [address]26[address]2016 History of Past illness Narrative* Problem Noted Date Resolved Date Biceps tendinitis on right 01/30/201605/21 Chronic right shoulder pain 01/30/201605/06 Cervical radiculitis 09/14/2015 05/21/2017 Other acquired deformity of toe 08/20/2010 05/21/2017 Fibrocystic disease of breast 01/15/2010 Nonspecific abnormal results of thyroid function study 04/06/2009 02/29/2016 Thoracic or lumbosacral neuritis or radiculitis, unspecified 03/28/2004 05/21/2017 PCB (post coital bleeding) 05/21 documented as of this encounter (statuses as of 06/26/2022) [address]26[address]2016 History of Past illness Narrative* Problem Noted Date Resolved Date Biceps tendinitis on right 01/30/201605/21 Chronic right shoulder pain 01/30/201605/06 Cervical radiculitis 09/14/2015 05/21/2017 Other acquired deformity of toe 08/20/2010 05/21/2017 Fibrocystic disease of breast 01/15/2010 Nonspecific abnormal results of thyroid function study 04/06/2009 02/29/2016 Thoracic or lumbosacral neuritis or radiculitis, unspecified 03/28/2004 05/21/2017 PCB (post coital bleeding) 05/21 documented as of this encounter (statuses as of 07/25/2022) [address]26[address]2016 History of Past illness Narrative* Problem Noted Date Resolved Date Biceps tendinitis on right 01/30/201605/21 Chronic right shoulder pain 01/30/201605/06 Cervical radiculitis 09/14/2015 05/21/2017 Other acquired deformity of toe 08/20/2010 05/21/2017 Fibrocystic disease of breast 01/15/2010 Nonspecific abnormal results of thyroid function study 04/06/2009 02/29/2016 Thoracic or lumbosacral neuritis or radiculitis, unspecified 03/28/2004 05/21/2017 PCB (post coital bleeding) 05/21 documented as of this encounter (statuses as of 11/01/2022) [address]2016 History of Past illness Narrative* Problem Noted Date Resolved Date Biceps tendinitis on right 01/30/201605/21 Chronic right shoulder pain 01/30/201605/06 Cervical radiculitis 09/14/2015 05/21/2017 Other acquired deformity of toe 08/20/2010 05/21/2017 Fibrocystic disease of breast 01/15/2010 Nonspecific abnormal results of thyroid function study 04/06/2009 02/29/2016 Thoracic or lumbosacral neuritis or radiculitis, unspecified 03/28/2004 05/21/2017 PCB (post coital bleeding) 05/21 documented as of this encounter (statuses as of 11/25/2022) [address]2016 History of Past illness Narrative* Problem Noted Date Resolved Date Biceps tendinitis on right 01/30/201605/21 Chronic right shoulder pain 01/30/201605/06 Cervical radiculitis 09/14/2015 05/21/2017 Other acquired deformity of toe 08/20/2010 05/21/2017 Fibrocystic disease of breast 01/15/2010 Nonspecific abnormal results of thyroid function study 04/06/2009 02/29/2016 Thoracic or lumbosacral neuritis or radiculitis, unspecified 03/28/2004 05/21/2017 PCB (post coital bleeding) 05/21 documented as of this encounter (statuses as of 12/31/2022) [address]26[address]2016 History of Past illness Narrative* Problem Noted Date Resolved Date Biceps tendinitis on right 01/30/201605/21 Chronic right shoulder pain 01/30/201605/06 Cervical radiculitis 09/14/2015 05/21/2017 Other acquired deformity of toe 08/20/2010 05/21/2017 Fibrocystic disease of breast 01/15/2010 Nonspecific abnormal results of thyroid function study 04/06/2009 02/29/2016 Thoracic or lumbosacral neuritis or radiculitis, unspecified 03/28/2004 05/21/2017 PCB (post coital bleeding) 05/21 documented as of this encounter (statuses as of 01/07/2023) [address]26[address]2016 History of Past illness Narrative* Problem Noted Date Resolved Date Biceps tendinitis on right 01/30/201605/21 Chronic right shoulder pain 01/30/201605/06 Cervical radiculitis 09/14/2015 05/21/2017 Other acquired deformity of toe 08/20/2010 05/21/2017 Fibrocystic disease of breast 01/15/2010 Nonspecific abnormal results of thyroid function study 04/06/2009 02/29/2016 Thoracic or lumbosacral neuritis or radiculitis, unspecified 03/28/2004 05/21/2017 PCB (post coital bleeding) 05/21 documented as of this encounter (statuses as of 01/07/2023) [address]2016 History of Past illness Narrative* Problem Noted Date Resolved Date Biceps tendinitis on right 01/30/201605/21 Chronic right shoulder pain 01/30/201605/06 Cervical radiculitis 09/14/2015 05/21/2017 Other acquired deformity of toe 08/20/2010 05/21/2017 Fibrocystic disease of breast 01/15/2010 Nonspecific abnormal results of thyroid function study 04/06/2009 02/29/2016 Thoracic or lumbosacral neuritis or radiculitis, unspecified 03/28/2004 05/21/2017 PCB (post coital bleeding) 05/21 documented as of this encounter (statuses as of 03/14/2023) [address]2016 History of Past illness Narrative* Problem Noted Date Diagnosed Date Resolved Date Biceps tendinitis on right 01/30/2016 0 05/21/2017 Chronic right shoulder pain 01/30/2016 05/21/2017 Cervical radiculitis 09/14/2015 017 Other acquired deformity of toe 08/20/2010 05/21/2017 Fibrocystic disease of breast 01/15/2010 05/21/2017 Nonspecific abnormal results of thyroid function study 04/06/2009 02/29/2016 Thoracic or lumbosacral neur itis or radiculitis, unspecified 03/28/2004 05/21/2017 PCB (post coital bleeding) 0 05/21/2017 documented as of this encounter (statuses as of 04/13/2023) [facility] History of Past illness Narrative* Problem Noted Date Diagnosed Date Resolved Date Biceps tendinitis on right 01/30/2016 0 05/21/2017 Chronic right shoulder pain 01/30/2016 05/21/2017 Cervical radiculitis 09/14/2015 017 Other acquired deformity of toe 08/20/2010 05/21/2017 Fibrocystic disease of breast 01/15/2010 05/21/2017 Nonspecific abnormal results of thyroid function study 04/06/2009 02/29/2016 Thoracic or lumbosacral neur itis or radiculitis, unspecified 03/28/2004 05/21/2017 PCB (post coital bleeding) 0 05/21/2017 documented as of this encounter (statuses as of 05/26/2023) [facility] History of Past illness Narrative* Problem Noted Date Diagnosed Date Resolved Date Biceps tendinitis on right 01/30/2016 0 05/21/2017 Chronic right shoulder pain 01/30/2016 05/21/2017 Cervical radiculitis 09/14/2015 017 Other acquired deformity of toe 08/20/2010 05/21/2017 Fibrocystic disease of breast 01/15/2010 05/21/2017 Nonspecific abnormal results of thyroid function study 04/06/2009 02/29/2016 Thoracic or lumbosacral neur itis or radiculitis, unspecified 03/28/2004 05/21/2017 PCB (post coital bleeding) 0 05/21/2017 documented as of this encounter (statuses as of 08/09/2023) [facility] Diagnosis Acquired hypothyroidism- Primary Unspecified hypothyroidism General medical exam Unspecified general medical examination Hypothyroidism, unspecified type Mixed hyperlipidemia Elevated blood sugar Other abnormal glucose Encounter for screening for diabetes mellitus Screening for diabetes mellitus [facility] Diagnosis Radiculopathy, lumbar region Thoracic or lumbosacral neuritis or radiculitis, unspecified Cervical radiculopathy Brachial neuritis or radiculitis nos DDD (degenerative disc disease), cervical Degeneration of cervical intervertebral disc [facility] Diagnosis Cervical radiculopathy- Primary Brachial neuritis or radiculitis nos DDD (degenerative disc disease), cervical Degeneration of cervical intervertebral disc [facility] Diagnosis Acquired hypothyroidism- Primary Unspecified hypothyroidism Mixed hyperlipidemia Elevated blood sugar Other abnormal glucose Vitamin D deficiency Unspecified vitamin D deficiency Annual physical exam Routine general medical examination at a health care facility [facility] Diagnosis Radiculopathy, lumbar region- Primary Thoracic or lumbosacral neuritis or radiculitis, unspecified Degenerative disc disease, lumbar Degeneration of lumbar or lumbosacral intervertebral disc [facility] Radiculopathy, lumbar region- Primary Thoracic or lumbosacral neuritis or radiculitis, unspecified Degenerative disc disease, lumbar Degeneration of lumbar or lumbosacral intervertebral disc Spinal stenosis of lumbar region with neurogenic claudication Spinal stenosis, lumbar region, with neurogenic claudication Radiculopathy, lumbar region Thoracic or lumbosacral neuritis or radiculitis, unspecified Degenerative disc disease, lumbar Degeneration of lumbar or lumbosacral intervertebral disc Spinal stenosis of lumbar region with neurogenic claudication Spinal stenosis, lumbar region, with neurogenic claudication [facility] Diagnosis Annual physical exam- Primary Routine general medical examination at a health care facility Acquired hypothyroidism Unspecified hypothyroidism Radiculopathy, lumbar region Thoracic or lumbosacral neuritis or radiculitis, unspecified Degenerative disc disease, lumbar Degeneration of lumbar or lumbosacral intervertebral disc Spinal stenosis of lumbar region with neurogenic claudication Spinal stenosis, lumbar region, with neurogenic claudication [facility] Diagnosis Radiculopathy, lumbar region Thoracic or lumbosacral neuritis or radiculitis, unspecified Cervical radiculopathy Brachial neuritis or radiculitis nos DDD (degenerative disc disease), cervical Degeneration of cervical intervertebral disc Radiculopathy, lumbar region Thoracic or lumbosacral neuritis or radiculitis, unspecified Degenerative disc disease, lumbar Degeneration of lumbar or lumbosacral intervertebral disc Spinal stenosis of lumbar region with neurogenic claudication Spinal stenosis, lumbar region, with neurogenic claudication [facility] Diagnosis Acquired hypothyroidism- Primary Unspecified hypothyroidism Medication management Encounter for long-term (current) use of other medications Radiculopathy, lumbar region Thoracic or lumbosacral neuritis or radiculitis, unspecified Degenerative disc disease, lumbar Degeneration of lumbar or lumbosacral intervertebral disc Spinal stenosis of lumbar region with neurogenic claudication Spinal stenosis, lumbar region, with neurogenic claudication documented in this encounter [facility]* Diagnosis Radiculopathy, lumbar region- Primary Thoracic or lumbosacral neuritis or radiculitis, unspecified Cervical radiculopathy Brachial neuritis or radiculitis nos DDD (degenerative disc disease), cervical Degeneration of cervical intervertebral disc Spinal stenosis of cervical region Spinal stenosis in cervical region Spinal stenosis of lumbar region with neurogenic claudication Spinal stenosis, lumbar region, with neurogenic claudication Radiculopathy, lumbar region Thoracic or lumbosacral neuritis or radiculitis, unspecified Degenerative disc disease, lumbar Degeneration of lumbar or lumbosacral intervertebral disc Spinal stenosis of lumbar region with neurogenic claudication Spinal stenosis, lumbar region, with neurogenic claudication documented in this encounter [facility] note* Diagnosis Medication management- Primary Encounter for long-term (current) use of other medications Acquired hypothyroidism Unspecified hypothyroidism documented in this encounter [facility] note* Diagnosis Radiculopathy, lumbar region Thoracic or lumbosacral neuritis or radiculitis, unspecified Cervical radiculopathy Brachial neuritis or radiculitis nos DDD (degenerative disc disease), cervical Degeneration of cervical intervertebral disc documented in this encounter [facility] note* Diagnosis Encounter for screening mammogram for breast cancer documented in this encounter [facility] note* Diagnosis Acquired hypothyroidism- Primary Unspecified hypothyroidism Wellness examination documented in this encounter [facility] note* Diagnosis Radiculopathy, lumbar region- Primary Thoracic or lumbosacral neuritis or radiculitis, unspecified Cervical radiculopathy Brachial neuritis or radiculitis nos Spinal stenosis of lumbar region with neurogenic claudication Spinal stenosis, lumbar region, with neurogenic claudication Spinal stenosis of cervical region Spinal stenosis in cervical region DDD (degenerative disc disease), cervical Degeneration of cervical intervertebral disc Cervical radiculopathy Brachial neuritis or radiculitis nos Spinal stenosis of cervical region Spinal stenosis in cervical region DDD (degenerative disc disease), cervical Degeneration of cervical intervertebral disc [facility] Diagnosis Radiculopathy, lumbar region- Primary Thoracic or lumbosacral neuritis or radiculitis, unspecified Cervical radiculopathy Brachial neuritis or radiculitis nos Spinal stenosis of cervical region Spinal stenosis in cervical region DDD (degenerative disc disease), cervical Degeneration of cervical intervertebral disc Cervical radiculopathy Brachial neuritis or radiculitis nos Spinal stenosis of cervical region Spinal stenosis in cervical region DDD (degenerative disc disease), cervical Degeneration of cervical intervertebral disc [facility] Diagnosis Well adult exam- Primary Routine general medical examination at a health care facility Depression screening Screening for depression White coat syndrome without diagnosis of hypertension Elevated blood pressure reading without diagnosis of hypertension Acquired hypothyroidism Unspecified hypothyroidism Special screening for malignant neoplasms, colon documented in this encounter [facility] note* Diagnosis Screening for colon cancer- Primary Special screening for malignant neoplasms, colon Special screening for malignant neoplasms, colon documented in this encounter [facility] for referral (narrative)* Diagnostic Procedure Only (Routine) - Pending Review Specialty Diagnoses / Procedures Referred By Kacy sheikh Referred To Contact [facility] Diagnoses Encounter for screening mammogram for breast cancer Procedures DAPHNE SCREENING SCREENING MAMMOGRAPHY BI 2-VIEW BREAST INC CAD Mariam Brandon MD [address] [place] [address] [facility] [address] [place] [phone] Referral ID Status Reason Start Date Expiration Date Visits Requested Visits Authorized [id number] Pending Review Auto-Generat ed Referral 11/20/2022 12/20/2023 1 1 IO [facility] for referral (narrative)* Outpatient Procedure (Routine) - Authorized Specialty Diagnoses / Procedures Referred By Kacy sheikh Referred To Contact [facility] Diagnoses Special screening for malignant neoplasms, colon Procedures COLONOSCOPY SCREENING COLONOSCOPY FLX DX W/COLLJ SPEC WHEN PFRMJose Manuel Levy PA-C [address] [place] [address] [address] Referral ID Status Reason Start Date Expiration Date Visits Requested Visits Authorized [id number] Authorized Auto-Generat ed Referral 05/26/2023 05/26/2024 1 1 [facility] for referral (narrative)* Outpatient Procedure (Routine) - Closed Specialty Diagnoses / Procedures Referred By Kacy sheikh Referred To Contact [facility] Diagnoses Special screening for malignant neoplasms, colon Procedures COLONOSCOPY SCREENING COLONOSCOPY FLX DX W/COLLJ SPEC WHEN Jose Manuel Flores PA-C [address] [place] [address] [address] Referral ID Status Reason Start Date Expiration Date V isits Requested Visits Authorized [id number] Closed Auto-Generate d Referral 05/26/2023 05/26/2024 1 1 [facility] for visit Narrative* Outpatient Procedure (Routine) - Closed Specialty Diagnoses / Procedures Referred By Kacy sheikh Referred To Contact [facility] Diagnoses Special screening for malignant neoplasms, colon Procedures COLONOSCOPY SCREENING COLONOSCOPY FLX DX W/COLLJ SPEC WHEN Jose Manuel Flores PA-C [address] [place] [address] [facility] [address] [address] Referral ID Status Reason Start Date Expiration Date V isits Requested Visits Authorized [id number] Closed Auto-Generate d Referral 05/26/2023 05/26/2024 1 1 [facility] Advance Directives Documents on File Type Date Recorded 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 Advance Directive(s) Advance Directive(s) 02/08/2021 9:27 AM Advance Directive(s) 03/24/2020 1:03 PM Advance Directive(s) 03/16/2020 5:30 PM Advance Directive(s) 07/21/2018 11:38 AM Advance Directive(s) 08/26/2016 7:24 AM Advance Directive(s) 07/15/2016 9:48 AM Advance Directive(s) 03/05/2016 9:16 AM Documents on File Type Date Recorded 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 Advance Directive(s) Advance Directive(s) 02/22/2022 6:14 PM Advance Directive(s) 02/08/2021 9:27 AM Advance Directive(s) 03/24/2020 1:03 PM Advance Directive(s) 03/16/2020 5:30 PM Advance Directive(s) 07/21/2018 11:38 AM Advance Directive(s) 08/26/2016 7:24 AM Advance Directive(s) 07/15/2016 9:48 AM Advance Directive(s) 03/05/2016 9:16 AM Summary Purpose Family History No Family History Records FoundNo Family History Records Found Medications Administered Section Inactive Administered Medications - up to 3 most recent administrations Medication Order MAR Action Action Date Dose Rate Site diphenhydrAMINE 12.5-50 mg injection (BENADRYL) 12.5-50 mg, INTRAVENOUS, DIRECTED, Starting on Fri07/23/23 at 1030, Until Fri07/23/23 at 1429, DOSING DIRECTED BY PHYSICIAN FOR PROCEDURAL SEDATION ONLY, Intraprocedure Given 07/23/2023 10:01 AM EDT 50 mg fentaNYL 50 mcg/mL 25-100 mcg injection (SUBLIMAZE) 25-100 mcg, INTRAVENOUS, DIRECTED, Starting on Fri07/23/23 at 1030, Until Fri07/23/23 at 1429, DOSING DIRECTED BY PHYSICIAN FOR PROCEDURAL SEDATION ONLY, Intraprocedure Given 07/23/2023 10:10 AM EDT 50 mcg Additional Source Comments Source Comments (unrecognize d section and content) In the event this informatio n is protected by the Federal Confidentiality of Alcohol and Drug Abuse Patient Records regulations: The Federal rules restrict any use of the information to criminally investigate or prosecute any alcohol or drug abuse patient.[facility] event this information is protected by the Federal Confidentiality of Alcohol and Drug Abuse Patient Records regulations: The Federal rules restrict any use of the information to criminally investigate or prosecute any alcohol or drug abuse patient.[facility] the event this information is protected by the Federal Confidentiality of Alcohol and Drug Abuse Patient Records regulations: The Federal rules restrict any use of the information to criminally investigate or prosecute any alcohol or drug abuse patient.[facility] the event this information is protected by the Federal Confidentiality of Alcohol and Drug Abuse Patient Records regulations: The Federal rules restrict any use of the information to criminally investigate or prosecute any alcohol or drug abuse patient.[facility] the event this information is protected by the Federal Confidentiality of Alcohol and Drug Abuse Patient Records regulations: The Federal rules restrict any use of the information to criminally investigate or prosecute any alcohol or drug abuse patient.[facility] the event this information is protected by the Federal Confidentiality of Alcohol and Drug Abuse Patient Records regulations: The Federal rules restrict any use of the information to criminally investigate or prosecute any alcohol or drug abuse patient.[facility] the event this information is protected by the Federal Confidentiality of Alcohol and Drug Abuse Patient Records regulations: The Federal rules restrict any use of the information to criminally investigate or prosecute any alcohol or drug abuse patient.[facility] the event this information is protected by the Federal Confidentiality of Alcohol and Drug Abuse Patient Records regulations: The Federal rules restrict any use of the information to criminally investigate or prosecute any alcohol or drug abuse patient.[facility] the event this information is protected by the Federal Confidentiality of Alcohol and Drug Abuse Patient Records regulations: The Federal rules restrict any use of the information to criminally investigate or prosecute any alcohol or drug abuse patient.[facility] the event this information is protected by the Federal Confidentiality of Alcohol and Drug Abuse Patient Records regulations: The Federal rules restrict any use of the information to criminally investigate or prosecute any alcohol or drug abuse patient.[facility] the event this information is protected by the Federal Confidentiality of Alcohol and Drug Abuse Patient Records regulations: The Federal rules restrict any use of the information to criminally investigate or prosecute any alcohol or drug abuse patient.[facility] the event this information is protected by the Federal Confidentiality of Alcohol and Drug Abuse Patient Records regulations: The Federal rules restrict any use of the information to criminally investigate or prosecute any alcohol or drug abuse patient.[facility] the event this information is protected by the Federal Confidentiality of Alcohol and Drug Abuse Patient Records regulations: The Federal rules restrict any use of the information to criminally investigate or prosecute any alcohol or drug abuse patient.[facility] the event this information is protected by the Federal Confidentiality of Alcohol and Drug Abuse Patient Records regulations: The Federal rules restrict any use of the information to criminally investigate or prosecute any alcohol or drug abuse patient.[facility] the event this information is protected by the Federal Confidentiality of Alcohol and Drug Abuse Patient Records regulations: The Federal rules restrict any use of the information to criminally investigate or prosecute any alcohol or drug abuse patient.[facility] the event this information is protected by the Federal Confidentiality of Alcohol and Drug Abuse Patient Records regulations: The Federal rules restrict any use of the information to criminally investigate or prosecute any alcohol or drug abuse patient.[facility] the event this information is protected by the Federal Confidentiality of Alcohol and Drug Abuse Patient Records regulations: The Federal rules restrict any use of the information to criminally investigate or prosecute any alcohol or drug abuse patient.[facility] the event this information is protected by the Federal Confidentiality of Alcohol and Drug Abuse Patient Records regulations: The Federal rules restrict any use of the information to criminally investigate or prosecute any alcohol or drug abuse patient.[facility] the event this information is protected by the Federal Confidentiality of Alcohol and Drug Abuse Patient Records regulations: The Federal rules restrict any use of the information to criminally investigate or prosecute any alcohol or drug abuse patient.[facility] the event this information is protected by the Federal Confidentiality of Alcohol and Drug Abuse Patient Records regulations: The Federal rules restrict any use of the information to criminally investigate or prosecute any alcohol or drug abuse patient.[facility] Care Teams (unrecognized sec tion and content) Tile Inspector Relationship Specialty Start Date End Date Mariam Brandon MD [address] [place] [address] PCP - General Internal Medicine 09/11/20 Tile Inspector Relationship Specialty Start Date End Date Mariam Brandon MD [address] [place] [address] PCP - General Internal Medicine 09/11/20 Tile Inspector Relationship Specialty Start Date End Date Mariam Brandon MD [address] [place] [address] PCP - General Internal Medicine 09/11/20 Tile Inspector Relationship Specialty Start Date End Date Mariam Brandon MD [address] [place] [address] PCP - General Internal Medicine 09/11/20 Tile Inspector Relationship Specialty Start Date End Date Mariam Brandon MD [address] [place] [address] PCP - General Internal Medicine 09/11/20 Tile Inspector Relationship Specialty Start Date End Date Mariam Brandon MD [address] [place] [address] PCP - General Internal Medicine 09/11/20 Tile Inspector Relationship Specialty Start Date End Date Mariam Brandon MD [address] [place] [address] PCP - General Internal Medicine 09/11/20 Tile Inspector Relationship Specialty Start Date End Date Mariam Brandon MD [address] [place] [address] PCP - General Internal Medicine 09/11/20 Tile Inspector Relationship Specialty Start Date End Date Mariam Brandon MD [address] [place] [address] PCP - General Internal Medicine 09/11/20 Tile Inspector Relationship Specialty Start Date End Date Mariam Brandon MD [address] [facility], [place] [address] PCP - General Internal Medicine 09/11/20 Tile Inspector Relationship Specialty Start Date End Date Mariam Brandon MD [address] [facility] [place] [address] PCP - General Internal Medicine 09/11/20 Tile Inspector Relationship Specialty Start Date End Date Mariam Brandon MD [address] [facility], [place] [address] PCP - General Internal Medicine 09/11/20 Tile Inspector Relationship Specialty Start Date End Date Mariam Brandon MD [address] [place], [place] [address] PCP - General Internal Medicine 09/11/20 Tile Inspector Relationship Specialty Start Date End Date Mariam Brandon MD [address] [facility], [place] [id number] PCP - General Internal Medicine 09/11/20 Reason for Visit (unrecogniz ed section and content) Reason Comments Schedule Injection Reason Comments Physical post covid x 11 days , refills needed Reason Onset Date Comments Refill Request 06/18/2022 Reason Comments Results Reason Comments Injection Followup Reason Onset Date Comments Refill Request 10/30/2022 Reason Comments Follow Up Neck pain Reason Onset Date Comments Refill Request 03/13/2023 Reason Onset Date Comments Refill Request 04/12/2023 Reason Comments Physical physical no forms INFORMATION SOURCE (unrecogn ized section and content) DATE CREATED AUTHOR AUTHOR'S ORGANIZ ATION 07/24/2023 [facility] FOR RECORDS PERTAINING TO PATIENTS WHO ARE OR HAVE BEEN ENROLLED IN A CHEMICAL DEPENDENCY/SUBSTANCEABUSE PROGRAM, SOME INFORMATION MAY BE OMITTED. This clinical summary was aggregated from multiple sources. Caution should be exercised in using it in the provision of clinical care. This summary normalizes information from multiple sources, and as a consequence, information in this document may materially change the coding, format and clinical context of patient data. In addition, data may be omitted in some cases. CLINICAL DECISIONS SHOULD BE BASED ON THE PRIMARY CLINICAL RECORDS. [facility] [employer] [facility]. provides no warranty or guarantee of the accuracy or completeness of information in this document.
== END | disposition home or self-care (01) ==
LOC: OPBI 07:02
PROVIDERS: PCP Internal Medicine; Referring Provider Nurse Practitioner Women's Health; Visit Provider Nurse Practitioner Women's Health
DX: Z12.31 Encounter for screening mammogram for malignant neoplasm of breast (principal); Z80.3 Family history of malignant neoplasm of breast
CPT/HCPCS: 77063; 77067

== ENCOUNTER → 2024-01-01 | Outpatient (CLI) | payer MEDICARE, SELFPAY ==
--- NOTE | 2024-01-01 09:42 | BD_ITS ---
STUDY: DUAL ENERGY X-RAY ABSORPTIOMETRY / DXA REASON FOR EXAM: Female, 58 years old. Osteoporosis TECHNIQUE: Bone Mineral Density (BMD) measurements of lumbar spine and bilateral hips were obtained. COMPARISON: Comparison is made with prior study December 18, 2021. FINDINGS: Lumbar Spine (L1-L4): g/cm2 (0.959) / T-score (-0.8) / Z-score (0.7) Findings are suggestive of normal bone density with a low fracture risk. Left Femur Total: g/cm2 (0.801) / T-score (-1.2) / Z-score (-0.2) Left Femoral Neck: g/cm2 (0.743) / T-score (-1.0) / Z-score (0.4) Right Femur Total: g/cm2 (0.825) / T-score (-1.0) / Z-score (0.0) Right Femoral Neck: g/cm2 (0.663) / T-score (-1.7) / Z-score (-0.4) The T-Scores on the most recent prior examination were: Lumbar Spine (L1-L4): There has been improvement of bone density since the previous examination. Left Femur Total: which represents a worsening of 4.6%. Right Femur Total: which represents a worsening of 5.3%. BD/Dexa Bone Density Study IMPRESSION: The patient is considered osteopenic as outlined below according to World Aman Organization (WHO) criteria with a moderate fracture risk. There has been worsening of bone density since the previous examination. Reference Information: The T-score is the number of standard deviations above or below the standard which is normal for young adults at their peak bone mineral density. The World Health Organization (WHO) interprets the T-scores as follows: Above -1 Normal bone density Between -1 and -2.5 Osteopenia Equal to / or below -2.5 Osteoporosis As a practical clinical guideline, osteopenia may be graded as follows: Mild -1 through -1.5 Moderate -1.6 through -2.0 Severe -2.1 through -2.4 The Z-score is the number of standard deviations above or below age-matched controls. A Z-score of less than -1.5 would be considered abnormal. References: 1. NIH Osteoporosis and Related Bone Diseases www osteo.org 2. International Society for Clinical Densitometry www iscd.org 3. National Osteoporosis Foundation www nof.org Electronically Signed: Sheldon Stapleton MD at 13:21 EDT ,
== END | disposition home or self-care (01) ==
LOC: OPBD 09:42
PROVIDERS: PCP Internal Medicine; Referring Provider Nurse Practitioner Women's Health; Visit Provider Nurse Practitioner Women's Health
DX: M81.0 Age-related osteoporosis without current pathological fracture (principal); M85.80 Other specified disorders of bone density and structure, unspecified site
CPT/HCPCS: 77080

== ENCOUNTER → 2024-10-18 | Outpatient (CLI) | payer MEDICARE, SELFPAY ==
--- NOTE | 2024-10-18 07:03 | BI_ITS ---
MAMMOGRAPHY - BILATERAL SCREENING REASON FOR EXAM: Female, 59 years old. Routine annual screening examination. PERTINENT HISTORY: Aunt with breast cancer. History of prior right stereotactic breast biopsy. TECHNIQUE: Digital bilateral breast caryl (3D mammographic acquisition) in the CC and MLO projections. 2-D mediolateral oblique (MLO) and craniocaudad (CC) views of both breasts were obtained. CAD: Full Field Digital Mammography with Computer Added Detection was performed. COMPARISON: Comparison is made with prior study dated October 16, 2023 and October 14, 2022. FINDINGS: Breast Composition: The breasts are heterogeneously dense, which may obscure small masses. There are no dominant masses or suspicious calcifications. Once again, a tissue clip marker is seen in the central depth of the right breast No other significant abnormalities are identified. There has been no significant change since the prior study. BI/SCRN MAMM (CAD)W/CARYL BILAT IMPRESSION: Stable bilateral screening mammogram. Yearly follow-up mammogram recommended. (A) ASSESSMENT CATEGORY: BIRADS Category 2: Benign. A letter regarding these results will be sent to the patient by the facility within 30 days. Approximately 10% of breast cancers are not detected by mammography. A normal mammogram should not delay biopsy of a clinically suspicious abnormality. [id number] Electronically Signed: Sheldon Stapleton MD at 8:50 EST ,
== END | disposition home or self-care (01) ==
LOC: OPBI 07:02
PROVIDERS: PCP Internal Medicine; Referring Provider Nurse Practitioner Women's Health; Visit Provider Nurse Practitioner Women's Health
DX: Z12.31 Encounter for screening mammogram for malignant neoplasm of breast (principal); Z80.3 Family history of malignant neoplasm of breast